=== PATIENT | male | born 1970 | race Caucasian/White ===

== ENCOUNTER 2016-06-06 16:59 | Observation (INO) ==
--- NOTE | 2016-06-06 17:07 | Emergency Department Note ---
Disposition Clinical Impression: Chest pain Qualifiers: Chest pain type: unspecified Qualified Code(s): R07.9 - Chest pain, unspecified GI bleeding Qualifiers: GI bleed type/associated pathology: unspecified gastrointestinal hemorrhage type Qualified Code(s): K92.2 - Gastrointestinal hemorrhage, unspecified Disposition: Admitted As Inpatient Condition: Good Time of Disposition: 18:47 General Adult HPI - General Stated complaint: chest pain, rectal bleeding Time Seen by Provider: 06/06/16 17:05 Nursing Notes Reviewed: Yes Vital Signs Reviewed: Yes - Related Data Allergies Allergy/AdvReac Type Severity Reaction Status Date / Time acetaminophen [From Tylenol] Allergy Hives Verified 06/06/16 17:13 Course Course Narrative: Male patient resting in bed appears in distress. He does does not appear in respiratory distress. He appears like he is in pain. He says that he is having chest pain that started approximately 3 hours ago when he was "tinkering " outside. He denies doing any strenuous activity. He states that he does have a previous stent placement history and is on Plavix and aspirin daily. He states that this does feel like his previous MIs. He has used nitroglycerin with no relief. He states the pain is a sharp and aching in the center of his chest that radiates down his left arm and up to his neck. Also complaining of a cramping abdominal pain that is impressive for 3 days. He states that he has also had a bright red blood per rectum as well as passing clots per rectum for the past 3 days. His abdomen is soft with no organomegaly appreciated however he does state he has tenderness in all of his quadrants on palpation. We will do a cardiac workup. Will also provide patient with pain relief. He is hypertensive while he is here. He states he has taken his blood pressure medication today. - Reevaluation(s) Reevaluation #1: Patient complaining of pain still. We will give additional pain meds. He is still hypertensive as well. He states that he does have a recent history of pancreatitis. He has gross blood per rectum. Time: 18:07 Reevaluation #2: Patient very anxious lying in bed. He states he does take Xanax every day. We will given Ativan while he is here. His blood pressure is decreasing appropriately. I am concerned for possible aortic dissection. We will do a CTA patient's chest at this time. Time: 18:39 - Consultations Consultation #1: Dr Stone accepted Pt in stable condition. He is aware of the patient's chest pain lower GI bleeding as well as his hypertension. Time: 18:28 Vital Signs Temperature 98.2 F 06/06/16 17:02 Pulse Rate 73 06/06/16 17:02 Respiratory Rate 16 06/06/16 17:02 Blood Pressure 224/128 06/06/16 17:02 O2 Sat by Pulse Oximetry 97 06/06/16 17:02 Temperature 98.2 F 06/06/16 17:02 Pulse Rate 79 06/06/16 18:34 Respiratory Rate 18 06/06/16 18:34 Blood Pressure 193/102 06/06/16 18:34 O2 Sat by Pulse Oximetry 96 06/06/16 18:34 Oxygen Delivery Oxygen Delivery Room Air Medical Decision Making - Lab Data Result diagrams: 06/06/16 17:20 Lab Results 06/06/16 06/06/16 06/06/16 Range/Units 17:20 17:20 17:20 WBC 9.0 (4.3-11.1) K/mcL RBC 4.69 (4.19-5.50) M/mcL Hgb 15.1 (12.9-16.9) g/dL Hct 44.8 (37.5-50.1) % MCV 95.5 (83.0-100.0) fL MCH 32.2 (28.0-33.3) pg MCHC 33.7 (31.6-35.5) g/dL RDW 13.2 (11.5-14.5) % Plt Count 190 (140-400) K/mcL MPV 10.3 (9.4-12.4) fL Immature Gran % 0.4 (0-4) % Seg Neutrophils % 72.9 % Lymphocytes % 20.4 % Monocytes % 4.0 % Eosinophils % 2.0 % Basophils % 0.3 % Neutrophils # 6.5 (1.6-8.9) K/mcL Lymphocytes # 1.8 (0.6-4.6) K/mcL Monocytes # 0.4 (0.0-1.3) K/mcL Eosinophils # 0.2 (0.0-0.6) K/mcL Basophils # 0.0 (0.0-0.2) K/mcL PT 12.1 (9.4-12.1) Seconds INR 1.1 APTT 30.5 (26.0-36.0) Seconds Total Bilirubin 0.6 (0.2-1.2) mg/dL Direct Bilirubin 0.3 (0.0-0.5) mg/dL Indirect Bilirubin 0.3 (0.0-1.2) mg/dL AST 48 H (5-34) Units/L ALT 81 H (0-55) Units/L Alkaline Phosphatase 104 (38-126) Units/L Troponin I (0-0.03) ng/mL Serum Total Protein 6.7 (6.0-8.3) g/dL Albumin 3.6 (3.5-5.0) g/dL Globulin 3.1 (2.4-3.5) g/dL Albumin/Globulin Ratio 1.2 (1.1-2.2) Amylase 92 (25-125) Units/L Lipase 43 (8-78) Units/L Stool Occult Blood (Negative) 06/06/16 06/06/16 Range/Units 17:20 18:02 WBC (4.3-11.1) K/mcL RBC (4.19-5.50) M/mcL Hgb (12.9-16.9) g/dL Hct (37.5-50.1) % MCV (83.0-100.0) fL MCH (28.0-33.3) pg MCHC (31.6-35.5) g/dL RDW (11.5-14.5) % Plt Count (140-400) K/mcL MPV (9.4-12.4) fL Immature Gran % (0-4) % Seg Neutrophils % % Lymphocytes % % Monocytes % % Eosinophils % % Basophils % % Neutrophils # (1.6-8.9) K/mcL Lymphocytes # (0.6-4.6) K/mcL Monocytes # (0.0-1.3) K/mcL Eosinophils # (0.0-0.6) K/mcL Basophils # (0.0-0.2) K/mcL PT (9.4-12.1) Seconds INR APTT (26.0-36.0) Seconds Total Bilirubin (0.2-1.2) mg/dL Direct Bilirubin (0.0-0.5) mg/dL Indirect Bilirubin (0.0-1.2) mg/dL AST (5-34) Units/L ALT (0-55) Units/L Alkaline Phosphatase (38-126) Units/L Troponin I 0.01 (0-0.03) ng/mL Serum Total Protein (6.0-8.3) g/dL Albumin (3.5-5.0) g/dL Globulin (2.4-3.5) g/dL Albumin/Globulin Ratio (1.1-2.2) Amylase (25-125) Units/L Lipase (8-78) Units/L Stool Occult Blood Positive A (Negative) - EKG Data EKG #1 EKG attestation: Yes I reviewed and interpreted this EKG. EKG results narrative: Normal sinus rhythm at a rate of 64. WI interval is 128. QRS duration is 86. QT is 390. QTC is 399. There is no ST elevation or depression consistent with the STEMI. He does have some mild ST depression in lead 2.
[2016-06-06] MEDS ORDERED: *HR* HYDROmorphone (PF) 1 MG/ML SYRINGE IVP ONE ×2 (17:13→18:08)
[2016-06-06] MEDS ORDERED: Ondansetron 4 MG/2 ML VIAL IVP ONE (17:14)
--- NOTE | 2016-06-06 17:17 | Emergency Department Note ---
START Narrative - START START: I examined this patient and my medical decision-making was reviewed with the PROFESSOR OF THEOLOGY/PA/Advanced Practice Nurse/Resident Physician. I agree with the documented findings, disposition and treatment plan as described except to the extent set forth below. ED attending note: Patient seen with emergency medicine resident Dr. Ramirez. Please see a copy of his note for details of the H&P, evaluation, management and disposition of this patient. We independently had [id number] contact with the patient Briefly: 6-year-old male history of several cardiac stents and prior GI bleeding comes in with mild exertional chest discomfort rating down left arm not responsive to his nitroglycerin spray is also been having bright red blood per rectum. With epigastric discomfort is epigastric discomfort on physical examination EKG shows nonspecific changes. Patient's pain will be treated with IV Dilaudid and imaging troponin among other labs. Provided 35 minutes medical care services this patient AMI, aortic dissection GI bleed among others are in her differential be worked up. Disposition pending.
[2016-06-06 17:33] LABS: Basophils % 0.3 %; Eosinophils # 0.2 K/mcL (0.0-0.6); Hematocrit 44.8 % (37.5-50.1); Hemoglobin 15.1 g/dL (12.9-16.9); Immature Granulocytes % 0.4 % (0-4); Lymphocytes # 1.8 K/mcL (0.6-4.6); Lymphocytes % 20.4 %; Mean Corpuscular HGB Conc 33.7 g/dL (31.6-35.5); Mean Corpuscular Hemoglobin 32.2 pg (28.0-33.3); Mean Corpuscular Volume 95.5 fL (83.0-100.0); Mean Platelet Volume 10.3 fL (9.4-12.4); Monocytes # 0.4 K/mcL (0.0-1.3); Neutrophils # 6.5 K/mcL (1.6-8.9); Platelet Count 190 K/mcL (140-400); Red Blood Count 4.69 M/mcL (4.19-5.50); Red Cell Distribution Width 13.2 % (11.5-14.5); Segmented Neutrophils % 72.9 %
[2016-06-06 17:38] LABS: INR 1.1; Prothrombin Time 12.1 Seconds (9.4-12.1)
[2016-06-06 17:41] LABS: Activated Partial Thrombo Time 30.5 Seconds (26.0-36.0)
[2016-06-06 17:49] LABS: Albumin 3.6 g/dL (3.5-5.0); Albumin/Globulin Ratio 1.2 (1.1-2.2); Bilirubin,Direct 0.3 mg/dL (0.0-0.5); Bilirubin,Indirect 0.3 mg/dL (0.0-1.2); Bilirubin,Total 0.6 mg/dL (0.2-1.2); Globulin 3.1 g/dL (2.4-3.5); Total Protein 6.7 g/dL (6.0-8.3)
[2016-06-06] MEDS ORDERED: *HR* LORazepam 2 MG/ML VIAL IVP ONE (18:38)
[2016-06-06 18:45] LABS: BUN/Creatinine Ratio 12 (6-26); Blood Urea Nitrogen 15 mg/dL (8-26); Calcium 8.7 mg/dL (8.6-10.8); Carbon Dioxide 17 mEq/L (19-29); Chloride 111 mEq/L (98-109); Glucose 188 mg/dL (70-99); Osmolality,Calculated 296 (280-300); Potassium 3.8 mEq/L (3.5-4.5); Sodium 140 mEq/L (136-145); eGFR For African Americans > 60 (> 60); eGFR For Non-African Americans > 60 (> 60)
[2016-06-06] MEDS ORDERED: methylPREDNISolone 125 MG/2 ML VIAL IVP ONE (18:52)
[2016-06-06] MEDS ORDERED: Naloxone 0.4 MG/ML INJ IVP PRN (22:01)
[2016-06-06] MEDS ORDERED: Ondansetron 4 MG/2 ML VIAL IVP PRN (22:01)
--- NOTE | 2016-06-06 22:20 | Internal Med History&Physical ---
Date of Encounter: 06/06/16 Time of Encounter: 22:20 Assessment and Plan (1) Hematochezia Current visit: Yes Status: Acute Patient apparently had GI bleed in the past and had colonoscopy but he does not remember the result. Fecal occult blood is positive. Will hold aspirin and Plavix. Gastroenterology consultation. Keep the pt NPO. Pt has epigastric pain and cannot completely rule out upper GI bleed with rapid transit. Hence will give pantoprazole IV. Monitor H&H Q6H (2) Hypertensive urgency Current visit: Yes Status: Acute Continue home medications and hydralazine PRN (3) Chest pain Current visit: Yes Status: Acute Not typical chest pain for ACS. Pt has hypertensive urgency, which could also cause chest pain. His pain seem to be extension from the abdominal pain. EKG shows no acute ischemic changes. Cardiac monitoring. Trend troponins. Qualifiers: Chest pain type: unspecified Qualified Code(s): R07.9 - Chest pain, unspecified (4) Epigastric abdominal pain Current visit: Yes Status: Acute Lipase is normal. Could be related to Gastritis / PUD. CT abdomen is negative for acute lesions. Emperically treat with pantoprazole. (5) CAD (coronary artery disease) Current visit: Yes Status: Chronic Hold aspirin and documented to hematochezia. Otherwise continue home medications. Qualifiers: Coronary Disease-Associated Artery/Lesion type: [place] artery [place] vs. transplanted heart: [place] heart Associated angina: angina presence unspecified Qualified Code(s): I25.10 - Atherosclerotic heart disease of [place] coronary artery without angina pectoris (6) Obesity (BMI 30.0-34.9) Current visit: Yes Status: Chronic Supportive care (7) Fatty liver Current visit: Yes Status: Acute Noted on CT scan of the abdomen. Supportive care Internal Medicine - H&P: HPI Chief complaint: Chest pain; dark blood in BM Admitted From: Emergency Dept Plans for Post Hospital Care: Home History of present illness: Mr. Pink is a 46 year old male with h/o CAD s/p stent placement (last one about 2 years ago) - on aspirin and clopidogrel, HTN. He reports 3 day history of bleeding per rectum - today noticed some clots / dark blood. Denies black stool, coffee-ground vomit. He reports sharp pain in the epigastric/left upper quadrant region, extending into the lower chest and radiating to the back / interscapular area. Pain is 8/10 in severity, with relief with dilaudid in the ER. Apparently he had some relief of pain with nitroglycerine. No significant shortness of breath, cough, expectation, fever, chills, nausea, vomiting. He was evaluated in the emergency department. Fecal occult blood was positive. Troponin was negative. CTA chest was negative for pulmonary embolism. He is admitted to the hospitalist service for further management. Past Med Surg Social Fam HX - Past Medical History Medical history: coronary artery disease, hypertension, myocardial infarction, renal disease Psychiatric history: no psych history - Social History Smoking Status: Light tobacco smoker Packs per day: 02/17 Smokeless Tobacco Status: Yes Alcohol use: none Drug use: marijuana - Family History Mother Adopted: No Age: 65 Family Member Ethnicity: Non- Living Status: Still Living Hx Family Cardiac Disorders: Yes Hx Family Cancer: No Hx Family Endocrine Disorder: Yes Father Adopted: No Age: 75 Family Member Ethnicity: Non- Living Status: Still Living Hx Family Cardiac Disorders: Yes Hx Family Endocrine Disorder: Yes Internal Medicine - H&P: Meds Alprazolam [Xanax] 2 mg PO BID 06/07/16 [History] Aspirin Enteric Coated [Aspirin EC] 81 mg PO DAILY 06/07/16 [History] Atorvastatin Calcium [Lipitor] 20 mg PO HS 06/07/16 [History] Buspirone HCl [Buspar] 30 mg PO BID 06/07/16 [History] Carvedilol 12.5 mg PO BID 06/07/16 [History] Cholecalciferol (D-3) [Vitamin D] 1,000 unit PO DAILY 06/07/16 [History] Clopidogrel [Plavix] 75 mg PO DAILY 06/07/16 [History] Lisinopril [Zestril] 20 mg PO DAILY 06/07/16 [History] Metoprolol [Lopressor] 50 mg PO BID 06/07/16 [History] Mirtazapine [Remeron] 30 mg PO HS 06/07/16 [History] Oxycodone HCl 15 mg PO TID 06/07/16 [History] Pantoprazole Sodium [Protonix] 40 mg PO DAILY 06/07/16 [History] Ranolazine [Ranexa] 1,000 mg PO BID 06/07/16 [History] Allergies acetaminophen [From Tylenol] Allergy (Verified 06/06/16 17:13) Hives All Systems PM: A 10-system review of systems was performed and is negative for pertinent findings except as documented above in the HPI. - Constitutional Vitals: Temp Pulse Resp BP Pulse Ox 98.2 F 79 20 188/108 96 06/06/16 17:02 06/06/16 18:34 06/06/16 19:26 06/06/16 19:26 06/06/16 18:34 Exam: General: In mild distress at the time of my evaluation. Obese HEENT: Oral mucosa is moist. No conjunctival palor or scleral icterus Neck: No obvious neck swellings Lungs: Clear to auscultation Cardiac: Regular rate and rhythm. No significant murmurs Abdomen: Epigastric, lower chest and LUQ tenderness. Bowel sounds present Genitourinary: No sandoval catheter Neurological: Alert and oriented. No gross localizing deficits Psych: Not aggressive or agitated Extremities: Minimal leg edema Skin: No generalized rash Internal Med - H&P Results - Labs CBC & Chem 7: 06/07/16 00:12 06/07/16 00:12 - EKG Data -: EKG Interpreted by Myself EKG shows normal: sinus rhythm - EKG Data EKG comments: Q waves in V1-V2 06/07/16 01:38 - Impressions ITS Impressions Chest X-Ray 06/06/16 17:13 IMPRESSION: No acute process. D/ / Luc Pugh MD / Luc Pugh MD Interpreting Provider: Luc Pugh MD Chest CTA 06/06/16 18:39 IMPRESSION: 1. No acute abnormalities are seen in the chest, abdomen or pelvis. 2. Negative for pulmonary embolism. 3. Negative for aortic aneurysm or dissection. 4. Fatty infiltration of the liver. 5. Bladder wall thickening can be seen in chronic cystitis or bladder outlet obstruction. 6. Atherosclerotic changes. D/ / 06/06/2016 22:01:00 Lc Vazquez MD / ana Interpreting Provider: Lc Vazquez MD
[2016-06-06] MEDS: 0.9 % Sodium Chloride 1,000 ML IVC SCH (22:24)
[2016-06-06] MEDS: *HR* Morphine 2 MG/ML SYRINGE IVP PRN (23:28)
[2016-06-06 23:33] LABS: Bilirubin,Urine Negative (Negative); Blood,Urine Negative (Negative); Clarity,Urine Clear (Clear); Color,Urine Yellow (Yellow); Glucose,Urine (UA) Normal (Normal); Ketones,Urine Negative (Negative); Leukocyte Esterase,Urine Negative (Negative); Nitrite,Urine Negative (Negative); PH,Urine 6.5 pH Units (5.0-8.0); Protein,Urine Negative (Neg-Trace); Specific Gravity,Urine 1.015 (1.010-1.025); Urobilinogen,Urine Normal (Normal)
[2016-06-07 00:35] LABS: Basophils % 0.2 %; Eosinophils % 0.2 %; Hematocrit 45.7 % (37.5-50.1); Hematocrit 45.8 % (37.5-50.1); Hemoglobin 15.2 g/dL (12.9-16.9); Hemoglobin 15.3 g/dL (12.9-16.9); Immature Granulocytes % 0.7 % (0-4); Lymphocytes # 0.6 K/mcL (0.6-4.6); Lymphocytes % 6.3 %; Mean Corpuscular HGB Conc 33.4 g/dL (31.6-35.5); Mean Corpuscular Hemoglobin 32.1 pg (28.0-33.3); Mean Corpuscular Volume 96.2 fL (83.0-100.0); Mean Platelet Volume 10.2 fL (9.4-12.4); Monocytes # 0.1 K/mcL (0.0-1.3); Monocytes % 0.7 %; Platelet Count 192 K/mcL (140-400); Red Blood Count 4.76 M/mcL (4.19-5.50); Red Cell Distribution Width 13.2 % (11.5-14.5); Segmented Neutrophils % 91.9 %
[2016-06-07 00:49] LABS: BUN/Creatinine Ratio 12 (6-26); Blood Urea Nitrogen 15 mg/dL (8-26); Calcium 8.8 mg/dL (8.6-10.8); Carbon Dioxide 18 mEq/L (19-29); Chloride 111 mEq/L (98-109); Chol/HDL Ratio 6.2 (0-4.9); Cholesterol 236 mg/dL (< 200); Glucose 181 mg/dL (70-99); HDL Cholesterol 38 mg/dL (40-59); LDL Cholesterol,Calculated 180 mg/dL (0-99); Magnesium 1.9 mg/dL (1.6-2.6); Osmolality,Calculated 293 (280-300); Potassium 4.3 mEq/L (3.5-4.5); Sodium 139 mEq/L (136-145); Triglycerides 91 mg/dL (< 150); eGFR For African Americans > 60 (> 60); eGFR For Non-African Americans > 60 (> 60)
[2016-06-07] MEDS ORDERED: Mirtazapine 15 MG TABLET PO SCH (01:00)
[2016-06-07] MEDS: ALPRAZolam 1 MG TABLET PO SCH ×2 (01:08→08:52)
[2016-06-07] MEDS ORDERED: Pantoprazole 40 MG VIAL IVP SCH ×2 (01:20→04:00)
[2016-06-07] MEDS: *HR* HYDROmorphone (PF) 1 MG/ML SYRINGE IVP PRN ×2 (01:55→04:58)
[2016-06-07] MEDS: *HR* Morphine 2 MG/ML SYRINGE IVP PRN ×2 (03:34→07:18)
[2016-06-07] MEDS: 0.9 % Sodium Chloride 1,000 ML IVC SCH (08:52)
[2016-06-07] MEDS ORDERED: Ranolazine 500 MG TAB.ER.12H PO SCH (09:00)
[2016-06-07] MEDS ORDERED: *HR* OxyCODONE Immed Rel 15 MG TABLET PO SCH (09:00)
[2016-06-07] MEDS ORDERED: Nitroglycerin 0.4 MG TAB.SUBL SL PRN (09:02)
[2016-06-07] MEDS ORDERED: Lisinopril 20 MG TABLET PO SCH (09:15)
[2016-06-07] MEDS ORDERED: Isosorbide MONOnitrate (24 HR) 60 MG TAB.ER.24H PO SCH (09:15)
[2016-06-07] MEDS ORDERED: *HR* OxyCODONE Immed Rel 15 MG TABLET PO PRN (09:31)
[2016-06-07] MEDS: Sucralfate 1 GM TABLET PO SCH ×2 (10:42→15:55)
[2016-06-07 11:46] VITALS: BP 139/85
--- NOTE | 2016-06-07 12:15 | Discharge Summary ---
Date of Encounter: 06/07/16 Time of Encounter: 12:15 - Discharge Diagnosis (1) Drug-seeking behavior Priority: Primary Status: Acute (2) Fatty liver Priority: Secondary Status: Chronic (3) Hematochezia Priority: Primary Status: Chronic (4) Hypertensive urgency Priority: Primary Status: Resolved (5) CAD (coronary artery disease) Priority: Secondary Status: Chronic Qualifiers: Coronary Disease-Associated Artery/Lesion type: [place] artery [place] vs. transplanted heart: [place] heart Associated angina: angina presence unspecified Qualified Code(s): I25.10 - Atherosclerotic heart disease of [place] coronary artery without angina pectoris (6) Obesity (BMI 30.0-34.9) Priority: Secondary Status: Chronic - Discharge Medications Prescriptions: Albuterol Neb [Proventil Neb] 2.5 mg IH Q4HR PRN #15 vial.neb PRN Reason: Wheezing Albuterol Sulfate [Ventolin Hfa] 2 puff IH Q4H PRN #2 hfa.aer.ad PRN Reason: Shortness Of Breath Nebulizer [Aeroeclipse] 1 each MC DAILY PRN #1 kit PRN Reason: Wheezing Nebulizer Accessories [Sootheneb [id number] Adult Mask] 1 each MC DAILY PRN #1 each PRN Reason: Wheezing Home Medications: Albuterol Neb [Proventil Neb] 2.5 mg IH Q4HR PRN #15 vial.neb 06/07/16 [Rx] Albuterol Sulfate [Ventolin Hfa] 2 puff IH Q4H PRN #2 hfa.aer.ad 06/07/16 [Rx] Alprazolam [Xanax] 2 mg PO BID 06/07/16 [History] Aspirin Enteric Coated [Aspirin EC] 325 mg PO DAILY 06/07/16 [History] Atorvastatin Calcium [Lipitor] 20 mg PO HS 06/07/16 [History] Buspirone HCl [Buspar] 10 mg PO TID 06/07/16 [History] Clopidogrel [Plavix] 75 mg PO DAILY 06/07/16 [History] Ergocalciferol (VITAMIN D2) [Vitamin D] 400 unit PO DAILY 06/07/16 [History] Escitalopram [Lexapro] 10 mg PO DAILY 06/07/16 [History] Furosemide [Lasix] 20 mg PO DAILY 06/07/16 [History] Isosorbide MONOnitrate (24 HR) [Imdur] 60 mg PO DAILY 06/07/16 [History] Lisinopril [Zestril] 40 mg PO DAILY 06/07/16 [History] Metoprolol [Lopressor] 50 mg PO BID 06/07/16 [History] Mirtazapine [Remeron] 30 mg PO HS 06/07/16 [History] Nebulizer Accessories [Sootheneb [id number] Adult Mask] 1 each MC DAILY PRN #1 each 06/07/16 [Rx] Nebulizer [Aeroeclipse] 1 each MC DAILY PRN #1 kit 06/07/16 [Rx] Nitroglycerin [Nitrostat] 0.4 mg SL AD PRN 06/07/16 [History] Oxycodone HCl 15 mg PO TID 06/07/16 [History] Pantoprazole Sodium [Protonix] 40 mg PO DAILY 06/07/16 [History] Ranolazine [Ranexa] 1,000 mg PO BID 06/07/16 [History] Sucralfate [Carafate] 1 gm PO QIDAC 06/07/16 [History] Allergies/Adverse Reactions: Allergies acetaminophen [From Tylenol] Allergy (Verified 06/06/16 17:13) Hives Date of admission: 06/07/16 09:06 Primary care physician: PCP ANJU Discharging clinician: Yunior Hernandez Anticipated date of discharge: 06/07/16 - Patient Status Disposition: Home, Self-Care Condition: Good Functional capacity at discharge: independent ambulation Overall status at discharge: patient is back to baseline - Discharge Instructions Instructions: Chest Pain (DC), Gastrointestinal Bleeding (DC), Hypertensive Crisis (DC) Follow Up With: NO,PCP [Primary Care Provider] - Forms: ED Satisfaction Letter - Diet and Activity Activity: resume usual activities as tolerated Diet: low fat, low cholesterol, low salt diet Interval History: See below Hospital course: Mr. Pink is a 46 year old male Patient presented with abdominal pain and hx of hematochezia He has a PMH of hemorrhoids, CAD, HTN Liver disease, Ex-smoker He is hemodynamically stable. FOBT positive. UA unremarkable His BP was uncontrolled on admission possibly due to non-compliance with medications or appointments His work up is negative for an organic cause of his abdominal pain, chem is at baseline, CBC unremarkable, evidence of uncontrolled HLD, Normal amylase/lipase , mild transmits possibly from fatty liver, Patient has Oxycodone and Xanax listed as his home meds , [facility] review noted for no active prescriptions for opiates or xanax, patient reports "getting them from my doctor", however, has no established PCP Hb has remained stable at ~15 since admission GI was consulted, recommendations appreciated Since patient is hemodynamically stable, he can have colonoscopy scheduled as out-patient He will need to hold Plavix for 5 days prior to procedure PCP and GI appointments have been scheduled for patient, encouraged to follow up - Time Spent with Patient Total time spent providing and/or coordinating discharge services: Less than 30 minutes - Constitutional Vitals: Temp Pulse Resp BP Pulse Ox 97.7 F 66 16 139/85 95 06/07/16 11:46 06/07/16 11:46 06/07/16 11:46 06/07/16 11:46 06/07/16 11:46 General appearance: Present: A&O X 3, pleasant, no acute distress, obese - Head Head exam: Present: atraumatic, normocephalic - Eye Eye exam: Present: PERRL, conjuntiva pink, sclera anicteric Pupils: Present: PERRL - Neck Neck exam general surgery: Present: supple, trachea midline. Absent: lymphadenopathy - Respiratory Respiratory exam: Present: CTAB. Absent: accessory muscle use, rales, rhonchi, wheezes - Cardiovascular Cardiovascular exam: Present: RRR, +S1, +S2. Absent: diastolic murmur, gallop, rubs, systolic murmur - GI/Abdominal GI/Abdominal exam: Present: normal bowel sounds, soft, no peritoneal signs. Absent: distended, tenderness - Extremities Exam Extremities exam: Present: warm, radial pulses palpable and symetrical. Absent : calf tenderness, cyanotic, pedal edema - Neurological Exam Neurological exam: Present: alert, CN II-XII intact, oriented X3, no focal deficits. Absent: pronater drift, facial droop, speech deficit - Skin Skin exam: Present: dry, intact
--- NOTE | 2016-06-07 13:53 | Event Note ---
<Lc Vitale - Last Filed: 06/07/16 13:49> Date of Encounter: 06/07/16 Time of Encounter: 13:49 Chart reviewed. Hgb 15.1 on admission and 15.2 today. Pt with [facility] for 3 days. CTA abdomen showed fatty liver. Plan for colonoscopy in 2-3 weeks as outpatient. Pt will need to hold Plavix 5 days before procedure. <Beth Bahena - Last Filed: 06/07/16 17:41> Date of Encounter: 06/07/16
--- NOTE | 2016-06-07 19:31 | Electrocardiograph Report ---
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
[2016-06-08] MEDS ORDERED: Furosemide 20 MG TABLET PO SCH (09:00)
[2016-06-08] MEDS ORDERED: Cholecalciferol (D-3) 1,000 UNIT TABLET PO SCH ×2 (09:00)
== END 2016-06-07 16:55 | disposition home or self-care (01) ==
LOC: 2ANU 16:59 → EMEROO 16:59 → 2ANU 20:00 → UNDODISIN 06-07 16:55
PROVIDERS: ADMIT Internal Medicine; ATTEND Internal Medicine

== ENCOUNTER 2017-05-05 00:25 | Observation (INO) ==
[2017-05-05] MEDS ORDERED: Adenosine 90 MG/30 ML MLS IV ONE (02:25)
[2017-05-05] MEDS ORDERED: *HR* OxyCODONE Immed Rel 5 MG TABLET PO PRN (03:03)
[2017-05-05] MEDS ORDERED: Naloxone 0.4 MG/ML INJ IVP PRN (03:03)
[2017-05-05] MEDS ORDERED: Nitroglycerin 1 INCH/GM PACKET TP ONE (03:07)
--- NOTE | 2017-05-05 03:18 | Internal Med History&Physical ---
Date of Encounter: 05/05/17 Time of Encounter: 02:30 Assessment and Plan (1) COPD (chronic obstructive pulmonary disease) Current visit: Yes Status: Acute Patient has no wheezing. No signs of exacerbation. Continue home medications Qualifiers: COPD type: emphysema Emphysema type: unspecified Qualified Code(s): J43.9 - Emphysema, unspecified (2) History of CVA (cerebrovascular accident) Current visit: Yes Status: Acute Continue antiplatelet and statin. (3) Status post carotid surgery Current visit: Yes Status: Acute (4) Borderline diabetes Current visit: Yes Status: Acute Continue diet control (5) DVT prophylaxis Current visit: Yes Status: Acute Heparin subcutaneously (6) Chest pain Current visit: No Status: Acute Patient has a constant chest pain since this afternoon. History of CAD S/P stent. EKG and chest x-ray unremarkable. - Continuous cardiac monitoring - Track 3 sets of troponin, check d-dimer - Echocardiogram in a.m. - Placing patient on Nitropaste. Place patient on pain medication as needed Qualifiers: Chest pain type: precordial pain Qualified Code(s): R07.2 - Precordial pain (7) CAD (coronary artery disease) Current visit: No Status: Chronic Continue home medication aspirin, beta daniella, and statin Qualifiers: Coronary Disease-Associated Artery/Lesion type: [place] artery [place] vs. transplanted heart: [place] heart Associated angina: angina presence unspecified Qualified Code(s): I25.10 - Atherosclerotic heart disease of [place] coronary artery without angina pectoris (8) Obesity (BMI 30.0-34.9) Current visit: No Status: Chronic Need the lifestyle modification as outpatient (9) Hypertension Current visit: Yes Status: Acute Continue home medications. Closely monitor BP Qualifiers: Hypertension type: essential hypertension Qualified Code(s): I10 - Essential (primary) hypertension Internal Medicine - H&P: HPI Chief complaint: Chest pain Admitted From: Home Plans for Post Hospital Care: Home History of present illness: Mr. Pink is a 47 year old male with history of CAD S/P stent, borderline diabetes on diet control only, COPD, and hypertension, presented to ER of [facility] for chest pain. Patient said the chest pain started about 3 PM in the afternoon when patient is at rest. Chest pain is sudden onset, located on left chest, radiated to left the neck and back. Chest pain is constant. Patient has shortness of breath, nausea, and diaphoresis. No specific position makes the pain feels better or worse. Chest pain is not related to deep breath. Patient denies recent travel, immobilization, or surgery. Firstly EKG is unremarkable in [facility]. Chest x-ray negative. The first of troponin negative. Patient was treated with 2 mg IV morphine but the pain does not subside. Patient was transferred to our hospital because he sees cardiology here. When I saw patient in floor, he still complain of chest pain. Past Med Surg Social Fam HX - Past Medical History Medical history: coronary artery disease, hypertension, myocardial infarction, renal disease Psychiatric history: no psych history - Social History Smoking Status: Light tobacco smoker Smokeless Tobacco Status: Yes Alcohol use: none Drug use: marijuana - Family History Mother Adopted: No Family Member Ethnicity: Non- Living Status: Still Living Hx Family Cardiac Disorders: Yes ([place]) Hx Family Cancer: No Hx Family Endocrine Disorder: Yes Father Adopted: No Family Member Ethnicity: Non- Living Status: Hx Family Cardiac Disorders: Yes ([place]) Hx Family Endocrine Disorder: Yes ([place]) Internal Medicine - H&P: Meds Albuterol Neb [Proventil Neb] 2.5 mg IH Q4HR PRN #15 vial.neb 06/07/16 [Rx] Albuterol Sulfate [Ventolin Hfa] 2 puff IH Q4H PRN #2 hfa.aer.ad 06/07/16 [Rx] Alprazolam [Xanax] 2 mg PO BID 06/07/16 [History] Aspirin Enteric Coated [Aspirin EC] 325 mg PO DAILY 06/07/16 [History] Atorvastatin Calcium [Lipitor] 20 mg PO HS 06/07/16 [History] Buspirone HCl [Buspar] 10 mg PO TID 06/07/16 [History] Clopidogrel [Plavix] 75 mg PO DAILY 06/07/16 [History] Ergocalciferol (VITAMIN D2) [Vitamin D] 400 unit PO DAILY 06/07/16 [History] Escitalopram [Lexapro] 10 mg PO DAILY 06/07/16 [History] Furosemide [Lasix] 20 mg PO DAILY 06/07/16 [History] Isosorbide MONOnitrate (24 HR) [Imdur] 60 mg PO DAILY 06/07/16 [History] Lisinopril [Zestril] 40 mg PO DAILY 06/07/16 [History] Metoprolol [Lopressor] 50 mg PO BID 06/07/16 [History] Mirtazapine [Remeron] 30 mg PO HS 06/07/16 [History] Nebulizer Accessories [Sootheneb [id number] Adult Mask] 1 each MC DAILY PRN #1 each 06/07/16 [Rx] Nebulizer [Aeroeclipse] 1 each MC DAILY PRN #1 kit 06/07/16 [Rx] Nitroglycerin [Nitrostat] 0.4 mg SL AD PRN 06/07/16 [History] Oxycodone HCl 15 mg PO TID 06/07/16 [History] Pantoprazole Sodium [Protonix] 40 mg PO DAILY 06/07/16 [History] Ranolazine [Ranexa] 1,000 mg PO BID 06/07/16 [History] Sucralfate [Carafate] 1 gm PO QIDAC 06/07/16 [History] 3 Allergy/AdvReac Type Severity Reaction Status Date / Time acetaminophen [From Tylenol] Allergy Hives Verified 06/06/16 17:13 All Systems PM: A 10-system review of systems was performed and is negative for pertinent findings except as documented above in the HPI. - Constitutional General appearance: Present: mild distress, A&O X 3, answers questions appropriately - Head Head exam: Present: atraumatic, normocephalic - Eye Eye exam: Present: PERRL, conjuntiva pink, sclera anicteric Pupils: Present: PERRL - Neck Neck exam general surgery: Present: supple, trachea midline. Absent: lymphadenopathy - Respiratory Respiratory exam: Present: CTAB. Absent: accessory muscle use, rales, rhonchi, wheezes - Cardiovascular Cardiovascular exam: Present: RRR, +S1, +S2. Absent: diastolic murmur, gallop, rubs, systolic murmur - GI/Abdominal GI/Abdominal exam: Present: normal bowel sounds, soft, no peritoneal signs. Absent: distended, tenderness - Extremities Exam Extremities exam: Present: warm, radial pulses palpable and symmetrical. Absent : calf tenderness, cyanotic, pedal edema - Neurological Exam Neurological exam: Present: CN II-XII intact, oriented X3, no focal deficits. Absent: pronater drift, facial droop, speech deficit - Skin Skin exam: Present: dry, intact Internal Med - H&P Results - EKG Data -: EKG Interpreted by Myself EKG shows normal: sinus rhythm, ST-T waves (No significant ST-T change) Rate: normal
[2017-05-05] MEDS ORDERED: Albuterol 2.5 MG/3 ML NEBULIZER IH PRN (03:24)
[2017-05-05] MEDS ORDERED: Nitroglycerin 0.4 MG TAB.SUBL SL PRN (03:24)
[2017-05-05] MEDS ORDERED: Ipratropium/Albuterol Neb 3 ML IH PRN (03:44)
[2017-05-05] MEDS ORDERED: *HR* OxyCODONE Immed Rel 5 MG TABLET PO ONE (03:59)
[2017-05-05 05:04] LABS: INR 1.1; Prothrombin Time 11.5 Seconds (9.4-12.1)
[2017-05-05 05:09] LABS: Basophils % 0.3 %; Eosinophils # 0.2 K/mcL (0.0-0.6); Eosinophils % 2.1 %; Hematocrit 39.5 % (37.5-50.1); Hemoglobin 12.8 g/dL (12.9-16.9); Immature Granulocytes % 0.7 % (0-4); Lymphocytes % 23.3 %; Mean Corpuscular HGB Conc 32.4 g/dL (31.6-35.5); Mean Corpuscular Hemoglobin 31.1 pg (28.0-33.3); Mean Corpuscular Volume 95.9 fL (83.0-100.0); Mean Platelet Volume 10.5 fL (9.4-12.4); Monocytes # 0.6 K/mcL (0.0-1.3); Monocytes % 6.8 %; Neutrophils # 5.8 K/mcL (1.6-8.9); Platelet Count 187 K/mcL (140-400); Red Blood Count 4.12 M/mcL (4.19-5.50); Red Cell Distribution Width 13.4 % (11.5-14.5); Segmented Neutrophils % 66.8 %
[2017-05-05 05:20] LABS: Alanine Aminotransferase 134 Units/L (7-52); Albumin 3.7 g/dL (3.5-5.7); Albumin/Globulin Ratio 1.6 (1.1-2.2); Alkaline Phosphatase 88 Units/L (34-104); Aspartate Amino Transferase 95 Units/L (13-39); BUN/Creatinine Ratio 14 (6-26); Bilirubin,Total 0.4 mg/dL (0.3-1.0); Blood Urea Nitrogen 13 mg/dL (6-20); Calcium 8.5 mg/dL (8.6-10.3); Carbon Dioxide 21 mEq/L (23-29); Chloride 112 mEq/L (98-107); Globulin 2.3 g/dL (2.4-3.5); Glucose 74 mg/dL (70-105); Magnesium 1.7 mg/dL (1.6-2.6); Osmolality,Calculated 283 (280-300); Potassium 4.7 mEq/L (3.5-5.1); Sodium 137 mEq/L (136-145); eGFR For African Americans > 60 (> 60); eGFR For Non-African Americans > 60 (> 60)
[2017-05-05] MEDS: *HR* Heparin 5,000 UNIT/ML VIAL SQ SCH ×2 (06:20→17:47)
[2017-05-05] MEDS ORDERED: Isosorbide MONOnitrate (24 HR) 60 MG TAB.ER.24H PO SCH (09:00)
[2017-05-05] MEDS ORDERED: *HR* OxyCODONE Immed Rel 15 MG TABLET PO PRN (09:03)
[2017-05-05] MEDS: Sucralfate 1 GM TABLET PO SCH ×4 (09:15→21:54)
[2017-05-05] MEDS: Cholecalciferol (D-3) 1,000 UNIT TABLET PO SCH (09:15)
[2017-05-05] MEDS: ALPRAZolam 1 MG TABLET PO SCH ×2 (09:16→21:13)
[2017-05-05] MEDS: amLODIPine 5 MG TABLET PO SCH (09:16)
[2017-05-05] MEDS: Aspirin Enteric Coated 325 MG Tablet PO SCH (09:17)
[2017-05-05] MEDS: Furosemide 20 MG TABLET PO SCH (09:17)
[2017-05-05] MEDS: Ranolazine 500 MG TAB.ER.12H PO SCH ×2 (09:17→21:54)
[2017-05-05] MEDS: Lisinopril 20 MG TABLET PO SCH (09:17)
--- NOTE | 2017-05-05 12:39 | Cardiology Consult Note ---
Addendum entered and electronically signed by Singh Haywood CNP 05/05/17 13:59: Documented IVP dye allergy, reported "unresponsiveness". Will pre-medicate with prednisone and benadryl in anticipation of LHC tomorrow. Original Note: Date of Encounter: 05/05/17 Time of Encounter: 12:35 Assessment and Plan (1) Chest pain Current Visit: Yes Status: Acute As HPI, presented with chest pain that started yesterday at 3PM--sharp/heavy radiating to neck, back and into left shoulder associated with dyspnea, diaphoresis, nausea. Reports similar to prior anginal equivalent. Fatigue over the past year. Troponins negative x 2. No acute EKG changes. Chest pain currently 8--no alleviating or exacerbating factors. Reports multiple PCI in the past, most recent LHC and PCI ~1 year ago at [place] and reportedly a negative stress test ~6 months ago at [facility]. Will request records of both LHC and stress test. TTE pending to evaluate structure and function. Possible LHC tomorrow pending records and echo findings. R/B/A discussed and pt agreeable. Continue ASA, Plavix, Statin, BB, CCB, Nitrates. Will increase Imdur to 90mg daily. Continue to follow. Qualifiers: Chest pain type: unspecified Qualified Code(s): R07.9 - Chest pain, unspecified (2) CAD (coronary artery disease) Current Visit: Yes Status: Chronic As above, hx of multiple PCIs. ASA, Plavix, Statin, BB, CCB, Nitrates. Qualifiers: Coronary Disease-Associated Artery/Lesion type: [place] artery [place] vs. transplanted heart: [place] heart Associated angina: angina presence unspecified Qualified Code(s): I25.10 - Atherosclerotic heart disease of [place] coronary artery without angina pectoris Discussion w patient/family: The assessment and plan as outlined above was discussed with the patient and/or family members who expressed understanding and agreement. All questions were answered. Thank you for involving us in the care of your patient. Please call with any questions. I will discuss all the above with Dr. Del Toro and make changes as necessary. History of Present Illness Consult date: 05/05/17 Requesting physician: Mai Baugh Consult reason: chest pain Chief complaint: chest pain History of present illness: Mr. Pink is a 47 year old male Mr. Pink is a 47 year old male with history of CAD S/P multiple PCIs, borderline diabetes on diet control only, COPD, tobacco abuse, hypertension, reported hx of aorta repair, presented to ER from [facility] for chest pain. Patient said the chest pain started about 3 PM in the afternoon yesterday at rest. Chest pain is sudden onset, located on left chest, radiated to left the neck and back into left shoulder. Described as heavy and sharp. Pain has been intermittent, no alleviating or exacerbating factors. Patient has shortness of breath, nausea, and diaphoresis. Reports significant fatigue over the past year. Reports symptoms similar to prior anginal equivalent. Reports his most recent LHC was at [place] ~1 year ago with PCI at that time. Reports having a negative stress test at [facility] ~6 months ago. TTE pending. Troponins negative. Cardiology consulted for further recommendations. Past Med Surg Social Fam HX - Past Medical History Medical history: coronary artery disease, hypertension, myocardial infarction, renal disease Psychiatric history: no psych history - Social History Smoking Status: Light tobacco smoker Smokeless Tobacco Status: Yes Alcohol use: none Drug use: marijuana - Family History Mother Adopted: No Family Member Ethnicity: Non- Living Status: Still Living Hx Family Cardiac Disorders: Yes ([place]) Hx Family Cancer: No Hx Family Endocrine Disorder: Yes Father Adopted: No Family Member Ethnicity: Non- Living Status: Hx Family Cardiac Disorders: Yes ([place]) Hx Family Endocrine Disorder: Yes (DM) Medications and Allergies Albuterol Neb [Proventil Neb] 2.5 mg IH Q4HR PRN #15 vial.neb 06/07/16 [Rx] Albuterol Sulfate [Ventolin Hfa] 2 puff IH Q4H PRN #2 hfa.aer.ad 06/07/16 [Rx] Alprazolam [Xanax] 2 mg PO TID 06/07/16 [History] Aspirin Enteric Coated [Aspirin EC] 325 mg PO DAILY 06/07/16 [History] Atorvastatin Calcium [Lipitor] 80 mg PO HS 06/07/16 [History] Clopidogrel [Plavix] 75 mg PO DAILY 06/07/16 [History] Ergocalciferol (VITAMIN D2) [Vitamin D] 400 unit PO DAILY 06/07/16 [History] Escitalopram [Lexapro] 10 mg PO DAILY 06/07/16 [History] Furosemide [Lasix] 20 mg PO DAILY 06/07/16 [History] Isosorbide MONOnitrate (24 HR) [Imdur] 60 mg PO DAILY 06/07/16 [History] Lisinopril [Zestril] 40 mg PO DAILY 06/07/16 [History] Metoprolol [Lopressor] 50 mg PO BID 06/07/16 [History] Nitroglycerin [Nitrostat] 0.4 mg SL AD PRN 06/07/16 [History] Oxycodone HCl 15 mg PO TID 06/07/16 [History] Ranolazine [Ranexa] 1,000 mg PO BID 06/07/16 [History] Sucralfate [Carafate] 1 gm PO QIDAC 06/07/16 [History] Mirtazapine [Remeron] 45 mg PO HS 05/05/17 [History] Omeprazole [PriLOSEC] 40 mg PO DAILY 05/05/17 [History] Quetiapine Fumarate [Seroquel] 200 mg PO DAILY 05/05/17 [History] Venlafaxine XR (24 HR) [Effexor XR] 150 mg PO QPM 05/05/17 [History] amLODIPine [Norvasc] 5 mg PO DAILY 05/05/17 [History] 3 Allergy/AdvReac Type Severity Reaction Status Date / Time acetaminophen [From Tylenol] Allergy Hives Verified 06/06/16 17:13 All Systems Review: The remainder of the systems were reviewed and are negative - Cardiovascular Cardiovascular: as per HPI, chest pain at rest, chest pain with exertion, diaphoresis, dyspnea at rest, dyspnea on exertion, radiating jaw, neck or arm pain, leg edema - Respiratory Respiratory: dyspnea - Gastrointestinal Gastrointestinal: nausea Physical Examination Vital Signs, Last 4 Hours Temp Pulse Resp BP Pulse Ox 05/05/17 11:25 97.5 F L 68 18 111/70 95 Vital Signs Temp Pulse Resp BP Pulse Ox 05/05/17 11:25 97.5 F L 68 18 111/70 95 05/05/17 07:33 97.8 F 57 18 116/73 97 05/05/17 04:43 97.5 F L 61 15 139/88 98 Intake and Output 05/04/17 05/05/17 05/05/17 23:59 07:59 15:59 Intake Total 120 / 120 Balance 120 / 120 Intake: Oral 120 / 120 Other: Meal Breakfast Percent of Meal Consumed 100% Weight 95.878 kg Blood Glucose* 74 97 Patient Weight 05/05/17 23:59 Weight 95.878 kg General: Conversant, No Apparent Distress HEENT: Atraumatic, Normocephaly, Mucus Membranes Moist Neck: No JVD, Normal carotid pulses Cardiac: Reg Rate and Rhythm, Normal S1 and S2, Other (2/6 murmur noted) Lungs: Normal Breath Sounds, No Wheeze, Rales, Rhonchi Neuro: Alert and responsive, No focal deficits noted Abdomen: Soft, Non-Tender Skin: No rashes noted on visualized skin Musculoskeletal: No Chest Wall Tenderness Extremities: No Clubbing, No Cyanosis, No Edema, Normal Pulses Results 05/05/17 03:38 05/05/17 03:38 Lab Results 05/05/17 05/05/17 05/05/17 03:38 03:38 03:38 WBC 8.7 Hgb 12.8 L Hct 39.5 Plt Count 187 INR 1.1 D-Dimer Sodium 137 Potassium 4.7 Chloride 112 H Carbon Dioxide 21 L BUN 13 Creatinine 0.94 Glucose 74 Calcium 8.5 L Magnesium 1.7 Total Bilirubin 0.4 AST 95 H ALT 134 H Alkaline Phosphatase 88 Troponin I B-Natriuretic Peptide 05/05/17 05/05/17 05/05/17 03:38 03:38 03:38 WBC Hgb Hct Plt Count INR D-Dimer 348 Sodium Potassium Chloride Carbon Dioxide BUN Creatinine Glucose Calcium Magnesium Total Bilirubin AST ALT Alkaline Phosphatase Troponin I < 0.03 B-Natriuretic Peptide 334 H 05/05/17 09:09 WBC Hgb Hct Plt Count INR D-Dimer Sodium Potassium Chloride Carbon Dioxide BUN Creatinine Glucose Calcium Magnesium Total Bilirubin AST ALT Alkaline Phosphatase Troponin I < 0.03 B-Natriuretic Peptide Short CBC 05/05/17 Range/Units 03:38 WBC 8.7 (4.3-11.1) K/mcL Hgb 12.8 L (12.9-16.9) g/dL Hct 39.5 (37.5-50.1) % Plt Count 187 (140-400) K/mcL Neutrophils # 5.8 (1.6-8.9) K/mcL BMP 05/05/17 Range/Units 03:38 Sodium 137 (136-145) mEq/L Potassium 4.7 (3.5-5.1) mEq/L Chloride 112 H (98-107) mEq/L Carbon Dioxide 21 L (23-29) mEq/L BUN 13 (6-20) mg/dL Creatinine 0.94 (0.70-1.30) mg/dL Glucose 74 (70-105) mg/dL Calcium 8.5 L (8.6-10.3) mg/dL Cardiac Enzymes 05/05/17 05/05/17 Range/Units 09:09 03:38 Troponin I < 0.03 < 0.03 (< 0.04) ng/mL Liver Function 05/05/17 Range/Units 03:38 Total Bilirubin 0.4 (0.3-1.0) mg/dL AST 95 H (13-39) Units/L ALT 134 H (7-52) Units/L Alkaline Phosphatase 88 (34-104) Units/L Albumin 3.7 (3.5-5.7) g/dL Active Medications Albuterol/Ipratropium (Duoneb) 3 ml IH [id number] PRN PRN Reason: Shortness Of Breath/Wheezing Stop: 11/04/17 03:45 Alprazolam (Xanax) 2 mg PO BID [facility] Stop: 11/04/17 09:01 Last Admin: 05/05/17 09:16 Dose: 2 mg Amlodipine Besylate (Norvasc) 5 mg PO DAILY [facility] PRN Reason: Protocol Stop: 11/04/17 09:01 Last Admin: 05/05/17 09:16 Dose: 5 mg Aspirin (Aspirin Ec) 325 mg PO DAILY [facility] Stop: 11/04/17 09:01 Last Admin: 05/05/17 09:17 Dose: 325 mg Atorvastatin Calcium (Lipitor) 80 mg PO HS [facility] Stop: 11/04/17 21:01 Buspirone HCl (Buspar) 5 mg PO TID [facility] Stop: 11/04/17 09:01 Last Admin: 05/05/17 09:17 Dose: 5 mg Clopidogrel Bisulfate (Plavix) 75 mg PO DAILY [facility] Stop: 11/04/17 09:01 Last Admin: 05/05/17 09:16 Dose: 75 mg Escitalopram Oxalate (Lexapro) 10 mg PO DAILY [facility] Stop: 11/04/17 09:01 Last Admin: 05/05/17 09:15 Dose: 10 mg Furosemide (Lasix) 20 mg PO DAILY [facility] Stop: 11/04/17 09:01 Last Admin: 05/05/17 09:17 Dose: 20 mg Heparin Sodium (Porcine) (Heparin) 5,000 unit SQ Q12HCO [facility] Stop: 11/04/17 06:01 Last Admin: 05/05/17 06:20 Dose: 5,000 unit Isosorbide Mononitrate (Imdur) 60 mg PO DAILY [facility] Stop: 11/04/17 09:01 Last Admin: 05/05/17 09:16 Dose: 60 mg Lisinopril (Zestril) 40 mg PO DAILY [facility] PRN Reason: Protocol Stop: 11/04/17 09:01 Last Admin: 05/05/17 09:17 Dose: 40 mg Metoprolol Tartrate (Lopressor) 50 mg PO BID [facility] Stop: 11/04/17 09:01 Last Admin: 05/05/17 09:15 Dose: 50 mg Mirtazapine (Remeron) 30 mg PO HS [facility] Stop: 11/04/17 21:01 Naloxone HCl (Narcan) 0.4 mg IVP Q2MIN PRN PRN Reason: SEE COMMENTS Stop: 11/04/17 03:04 Nitroglycerin (Nitroglycerin) 0.4 mg SL AD PRN PRN Reason: Chest Pain Stop: 11/04/17 03:25 Omeprazole (Prilosec) 40 mg PO 0630 [facility] Stop: 11/04/17 06:31 Last Admin: 05/05/17 06:20 Dose: 40 mg Oxycodone HCl (Roxicodone) 15 mg PO Q6HR PRN PRN Reason: Severe Pain Stop: 11/04/17 09:04 Quetiapine Fumarate (Seroquel) 200 mg PO DAILY [facility] Stop: 11/04/17 09:01 Last Admin: 05/05/17 09:16 Dose: 200 mg Ranolazine (Ranexa) 1,000 mg PO BID [facility] Stop: 11/04/17 09:01 Last Admin: 05/05/17 09:17 Dose: 1,000 mg Sucralfate (Carafate) 1 gm PO QIDAC [facility] Stop: 11/04/17 07:31 Last Admin: 05/05/17 09:15 Dose: 1 gm Vitamin D (Vitamin D) 1,000 unit PO DAILY [facility] Stop: 11/04/17 09:01 Last Admin: 05/05/17 09:15 Dose: 1,000 unit - Imaging and Cardiology Echo: pending - EKG Interpretation EKG results cardiology: personally reviewed (Sinus yonas, rate 57), other (12 hr tele AVG HR 60, SR, no significant pauses or arrhythmias.) Consult Discharge Plan - Plan Referrals: Too Us DO [Primary Care Provider] -
--- NOTE | 2017-05-05 13:55 | Internal Med Progress Note ---
Date of Encounter: 05/05/17 Time of Encounter: 13:53 - Assessment and plan (1) Chest pain Current Visit: Yes Status: Acute Assessment and plan: Troponins are negative, EKG shows no signs of acute ischemia Patient complains of persistent chest pain Cardiology awaiting to receive records from other facilities to consider cardiac catheterization in the morning Patient will need to be present and medicated as he apparently is allergic to contrast Qualifiers: Chest pain type: unspecified Qualified Code(s): R07.9 - Chest pain, unspecified (2) Tobacco abuse Current Visit: Yes Status: Acute Assessment and plan: Nicotine patch, smoking cessation counseling (3) COPD (chronic obstructive pulmonary disease) Current Visit: Yes Status: Acute Assessment and plan: No exacerbation Qualifiers: COPD type: emphysema Emphysema type: unspecified Qualified Code(s): J43.9 - Emphysema, unspecified (4) History of CVA (cerebrovascular accident) Current Visit: Yes Status: Acute Assessment and plan: Aspirin and Plavix (5) Status post carotid surgery Current Visit: Yes Status: Acute Assessment and plan: History of left carotid endarterectomy (6) CAD (coronary artery disease) Current Visit: Yes Status: Chronic Assessment and plan: Hx of stents in the past at [facility] and [place] Continue aspirin, Lipitor, Plavix, Ranexa, metoprolol Qualifiers: Coronary Disease-Associated Artery/Lesion type: [place] artery [place] vs. transplanted heart: [place] heart Associated angina: angina presence unspecified Qualified Code(s): I25.10 - Atherosclerotic heart disease of [place] coronary artery without angina pectoris (7) Drug-seeking behavior Current Visit: No Status: Acute Assessment and plan: apparently the patient was found getting needles out of the sharp container. (8) Transaminitis Current Visit: Yes Status: Acute Assessment and plan: Denies any history of hepatitis We will order hepatitis panel for the morning - Subjective Interval history: still complaining of CP, no SOB, no fever, chills or abdominal pain, no dysuria , no diarrhea - Constitutional Vitals: Temp Pulse Resp BP Pulse Ox 97.5 F L 68 18 111/70 95 05/05/17 11:25 05/05/17 11:25 05/05/17 11:25 05/05/17 11:25 05/05/17 11:25 General appearance: Present: mild distress, A&O X 3, answers questions appropriately - Head Head exam: Present: atraumatic, normocephalic - Eye Eye exam: Present: PERRL, conjuntiva pink, sclera anicteric Pupils: Present: PERRL - Neck Neck exam general surgery: Present: supple, trachea midline. Absent: lymphadenopathy - Respiratory Respiratory exam: Present: CTAB. Absent: accessory muscle use, rales, rhonchi, wheezes - Cardiovascular Cardiovascular exam: Present: RRR, +S1, +S2. Absent: diastolic murmur, gallop, rubs, systolic murmur - GI/Abdominal GI/Abdominal exam: Present: normal bowel sounds, soft, no peritoneal signs. Absent: distended, tenderness - Extremities Exam Extremities exam: Present: warm, radial pulses palpable and symmetrical. Absent : calf tenderness, cyanotic, pedal edema - Neurological Exam Neurological exam: Present: CN II-XII intact, oriented X3, no focal deficits. Absent: pronater drift, facial droop, speech deficit - Skin Skin exam: Present: dry, intact Internal Medicine: Result - Labs CBC & Chem 7: 05/05/17 03:38 05/05/17 03:38 Labs: Short CBC 05/05/17 Range/Units 03:38 WBC 8.7 (4.3-11.1) K/mcL Hgb 12.8 L (12.9-16.9) g/dL Hct 39.5 (37.5-50.1) % Plt Count 187 (140-400) K/mcL Neutrophils # 5.8 (1.6-8.9) K/mcL BMP 05/05/17 03:38 Sodium 137 Potassium 4.7 Chloride 112 H Carbon Dioxide 21 L BUN 13 Creatinine 0.94 Glucose 74 Calcium 8.5 L Cardiac Enzymes 05/05/17 05/05/17 Range/Units 03:38 09:09 Troponin I < 0.03 < 0.03 (< 0.04) ng/mL Liver Function 05/05/17 Range/Units 03:38 Total Bilirubin 0.4 (0.3-1.0) mg/dL AST 95 H (13-39) Units/L ALT 134 H (7-52) Units/L Alkaline Phosphatase 88 (34-104) Units/L Albumin 3.7 (3.5-5.7) g/dL - ABG Interpretation ABG results: PT/INR, D-dimer PT 11.5 Seconds (9.4-12.1) 05/05/17 03:38 D-Dimer 348 ng/mLFEU (0-500) 05/05/17 03:38 - Impressions Impressions Echocardiogram 05/05/17 03:10 Impressions: LVEF 60-65%. Normal LV chamber size and function. Mild concentric left ventricular hypertrophy. Mild left ventricular diastolic dysfunction. Normal right ventricular structure and function. Mild aortic regurgitation. Mild-moderate obstruction across the LVOT, AV. Mean gradient 20 mmHg. Peak velocity 2.69 m/s. Mild tricuspid regurgitation. No pulmonary hypertension identified. Left Ventricular Wall Motion: Rest Echo Findings All wall segments showed normal motion. Findings: Study Quality * Technically sub-optimal due to poor echocardiographic windows. ECG Findings * Sinus bradycardia. Left Ventricle * LVEF 60-65%. * Normal LV chamber size and function. * Mild concentric left ventricular hypertrophy. * Mild left ventricular diastolic dysfunction. Right Ventricle * Normal right ventricular structure and function. Left Atrium * Moderately dilated left atrium. Right Atrium * Normal right atrial size. Interatrial Septum * Interatrial septum not well evaluated. Aortic Valve * Aortic valve not well visualized. * Grossly, the aortic valve appears calcified. Number of leaflets not well visualized. * Mild aortic regurgitation. * Mild-moderate obstruction across the LVOT/AV. Mean gradient 20 mmHg. Peak velocity 2.69 m/s. Mitral Valve * Mildly thickened mitral valve leaflets. * Trace mitral regurgitation. * No mitral stenosis. Tricuspid Valve * Normal tricuspid valve structure. * Mild tricuspid regurgitation. * No pulmonary hypertension. Pulmonic Valve * Pulmonic valve not well visualized. Aorta * Normally sized aortic root. Pericardium * The pericardium appears normal. IVC * Normal IVC dimensions and inspiratory collapse. Pulmonary Artery * Normal visualized portions of the main pulmonary artery. Consult Discharge Plan - Plan Referrals: Too Us DO [Primary Care Provider] -
[2017-05-05] MEDS: Nicotine 14 MG PATCH.TD24 TD SCH (14:37)
[2017-05-05] MEDS: Venlafaxine XR (24 HR) 75 MG CAP.ER.24H PO SCH (17:46)
[2017-05-05] MEDS ORDERED: Mirtazapine 15 MG TABLET PO SCH (21:00)
[2017-05-05] MEDS: predniSONE 20 MG TABLET PO SCH (21:54)
[2017-05-06] MEDS: *HR* Heparin 5,000 UNIT/ML VIAL SQ SCH ×2 (06:00→17:43)
[2017-05-06 07:46] LABS: Hepatitis A Antibody IgM Nonreactive (Nonreactive); Hepatitis B Core IgM Nonreactive (Nonreactive)
[2017-05-06 07:55] LABS: Hepatitis B Surface Antigen Reactive (Nonreactive); Hepatitis C Virus Antibody Reactive (Nonreactive)
[2017-05-06] MEDS: Aspirin Enteric Coated 325 MG Tablet PO SCH (08:41)
[2017-05-06] MEDS: ALPRAZolam 1 MG TABLET PO SCH (08:55)
[2017-05-06] MEDS: predniSONE 20 MG TABLET PO SCH (08:56)
[2017-05-06] MEDS: Ranolazine 500 MG TAB.ER.12H PO SCH (08:57)
[2017-05-06] MEDS: Lisinopril 20 MG TABLET PO SCH (08:57)
[2017-05-06] MEDS: Cholecalciferol (D-3) 1,000 UNIT TABLET PO SCH (08:57)
[2017-05-06] MEDS: Sucralfate 1 GM TABLET PO SCH ×3 (08:58→17:43)
[2017-05-06] MEDS: Furosemide 20 MG TABLET PO SCH (08:58)
[2017-05-06] MEDS: amLODIPine 5 MG TABLET PO SCH (08:58)
[2017-05-06] MEDS: Nicotine 14 MG PATCH.TD24 TD SCH (08:58)
[2017-05-06] MEDS ORDERED: Isosorbide MONOnitrate (24 HR) 30 MG TAB.ER.24H PO SCH (09:00)
[2017-05-06] MEDS ORDERED: *HR* Heparin 10,000 UNIT/10 ML VIAL ONE (09:18)
[2017-05-06] MEDS ORDERED: 0.9 % Sodium Chloride 2,000 ML ONE (09:18)
[2017-05-06] MEDS ORDERED: Nitroglycerin 1,000 MCG/10 ML VIAL IV ONE (09:18)
[2017-05-06] MEDS ORDERED: ISOVUE-370 200 ML INFUS..BTL IV ONE (09:18)
[2017-05-06] MEDS ORDERED: Heparin 1,000 UNITS/500 mL 500 ML ONE (09:18)
[2017-05-06] MEDS ORDERED: *HR* Midazolam HCl 2 MG/2 ML VIAL ONE ×2 (09:33→09:50)
--- NOTE | 2017-05-06 09:36 | Pre-Sedation Evaluation ---
Pre-sedation evaluation - Pre-sedation checklist Date of procedure: 05/06/17 Procedure: left heart cath Recent Vitals: Last Vital Signs Temp 97.7 F 05/06/17 07:15 Pulse 60 05/06/17 07:15 Resp 20 05/06/17 07:15 BP 138/83 05/06/17 07:15 Pulse Ox 98 05/06/17 07:15 H&P (including ROS) documented in medical record: Yes Previous reaction to sedatives/anesthetics: Yes; explain in comment (PT reports an allergy to IVP dye, but does not know what reaction he experienced, has had several heart caths since that reaction without symptoms.) Dietary Status: NPO after Midnight Airway Assessment: Patient can open mouth completely, TMJ function normal Dentition: No loose teeth or bridges Possible difficult airway: No ASA Classification *see protocol: CLASS III-Severe systemic disease Plan of Care: Pt appropriate candidate for procedure/moderate/conscious sedation , Risks/benefits of procedure/sedation discussed w/ patient/family, If not NPO; Risk of intake outweiged by necessity to perform procedure
[2017-05-06 09:43] LABS: Basophils % 0.2 %; Eosinophils % 0.1 %; Hematocrit 44.8 % (37.5-50.1); Immature Granulocytes % 0.6 % (0-4); Lymphocytes # 0.9 K/mcL (0.6-4.6); Lymphocytes % 7.4 %; Mean Corpuscular Hemoglobin 31.3 pg (28.0-33.3); Mean Corpuscular Volume 94.7 fL (83.0-100.0); Mean Platelet Volume 10.3 fL (9.4-12.4); Monocytes # 0.1 K/mcL (0.0-1.3); Monocytes % 1.1 %; Neutrophils # 10.7 K/mcL (1.6-8.9); Platelet Count 194 K/mcL (140-400); Red Blood Count 4.73 M/mcL (4.19-5.50); Red Cell Distribution Width 13.2 % (11.5-14.5); Segmented Neutrophils % 90.6 %
[2017-05-06 09:44] LABS: Hemoglobin 14.8 g/dL (12.9-16.9)
[2017-05-06 10:00] LABS: BUN/Creatinine Ratio 16 (6-26); Blood Urea Nitrogen 18 mg/dL (6-20); Carbon Dioxide 21 mEq/L (23-29); Chloride 110 mEq/L (98-107); Glucose 127 mg/dL (70-105); Osmolality,Calculated 285 (280-300); Potassium 4.9 mEq/L (3.5-5.1); Sodium 136 mEq/L (136-145); eGFR For African Americans > 60 (> 60); eGFR For Non-African Americans > 60 (> 60)
[2017-05-06] MEDS ORDERED: *HR* Bivalirudin 250 MG VIAL IVC ONE (10:28)
[2017-05-06] MEDS ORDERED: 0.9 % Sodium Chloride 1,000 ML IVC SCH (10:30)
--- NOTE | 2017-05-06 13:55 | Invasive Diagnostic Lab Proc ---
Name: Moose Pink Date of Study: 05/06/2017 Date: 1970 Ht: 66.1in Medical Record#: [id number] Age: 47 Wt: 211.20lb Gender: Male BSA: 2.05 Order #: [id number] BMI: 33.94 Physicians Procedure Physician: Dhaval Pink DO Referring MD: Patricia Gage CNP Referring MD: Staff Name Position Time In Thomas Washington RN Software Development Analyst 09:41 AM Raghu Chávez RN Software Development Analyst 09:41 AM Brooklynn Gutierrez RN Monitor 09:42 AM Radha Cardenas RT (R) Monitor 09:42 AM Raghu Chávez RN Software Development Analyst 10:09 AM Indications Indication Unstable Angina Procedures Performed Procedure CORONARY ARTERY ANGIO S&I IV Doppler BLD Flow 1st Vessel Pre-Procedure Checklist Informed consent is complete signed and on chart. H&P is on chart. ID band is on and ID verified with patient. Patient NPO for procedure The procedure was described for the patient and questions were answered. Blood Pressure: 138/83 ECG is on chart. Rhythm: NSR Plan of Care Patient will tolerate the procedure without complications. Adequate level of comfort will be maintained. Hemodynamics will remain stable Patient will recover from procedure without complications. Respiratory function will be maintained. Cardiac rhythm will remain stable. Patient temperature will be maintained. Patient and/or family have verbalized understanding of the procedure. Patient Education Intravenous Access Time IV Size Location DC'd Fluid/Drip Rate Units RN 09:40 AM 20g 1 1/4" Patent On Arrival Rt Arm 0.9NaCl 25 ml/hr Thomas Washington RN Allergies Contrast Media, Iodine Related Iodinated Contrast- Oral and IV Dye ketorolac vancomycin promethazine acetaminophen Vital Signs Time BP (mmHg) HR (bpm) O2 Sat. RR (bpm) LOC 09:41 AM 138 / 83 60 98 % 20 5 = Fully awake and oriented or at pre-proc level 09:43 AM / % 5 = Fully awake and oriented or at pre-proc level 09:43 AM / % 4 = Oriented but drowsy 09:58 AM / % 4 = Oriented but drowsy 10:47 AM 103 / 59 53 94 % 16 5 = Fully awake and oriented or at pre-proc level 09:40 AM 141 / 90 64 99 % 13 09:45 AM 149 / 97 64 98 % 17 09:50 AM 138 / 80 62 99 % 16 09:55 AM 131 / 83 60 97 % 14 10:00 AM 131 / 75 60 97 % 15 10:05 AM 113 / 68 65 99 % 14 10:11 AM 125 / 74 61 96 % 17 10:15 AM 121 / 71 61 95 % 22 10:20 AM 117 / 70 62 97 % 11 10:25 AM 116 / 58 58 95 % 10 10:30 AM 111 / 80 59 95 % 15 11:04 AM 100 / 68 54 94 % 16 11:15 AM 97 / 69 52 92 % 12 4 = Oriented but drowsy 11:30 AM 101 / 67 53 93 % 16 4 = Oriented but drowsy 11:45 AM 112 / 69 53 94 % 18 5 = Fully awake and oriented or at pre-proc level 12:00 PM 105 / 64 53 94 % 16 4 = Oriented but drowsy 12:15 PM 102 / 67 54 94 % 16 5 = Fully awake and oriented or at pre-proc level 12:30 PM 117 / 72 54 94 % 16 4 = Oriented but drowsy 12:45 PM 106 / 76 52 95 % 16 5 = Fully awake and oriented or at pre-proc level 01:00 PM 119 / 73 54 95 % 16 5 = Fully awake and oriented or at pre-proc level 01:15 PM 126 / 78 51 95 % 16 5 = Fully awake and oriented or at pre-proc level Procedural Medications Time Medication Dose Units Method Given By 09:43 AM Oxygen 2 L/min nasal cannula Raghu Chávez RN 09:50 AM Versed 1 mg Intravenous Thomas Washington RN 09:53 AM Versed 1 mg Intravenous Thomas Washington RN 09:55 AM Lidocaine 2% 10 ml Subcutaneous Dhaval Pink DO 10:08 AM Lidocaine 2% 7 ml Subcutaneous Dhaval Pink DO 10:09 AM Angiomax 0.75mg/kg bolus: 14 ml Intravenous Raghu Chávez RN 10:10 AM Angiomax 1.75mg/kg/hr: 33 ml/hr Intravenous Raghu Chávez RN 10:19 AM Adenosine 800 ml/hr Intracoronary Dhaval Pink DO 10:22 AM Adenosine d/c'd Intracoronary Dhaval Pink DO 10:25 AM Angiomax 1.75mg/kg/hr: ml Dc'd Thomas Washington RN 09:40 AM Versed 2 mg Intravenous [place], Thomas RN ASA Classification: CLASS III- Severe systemic disease (i.e. prior AMI, diabetes with vascular complications, morbid obesity) Obi Score Preprocedure Postprocedure Activity 2- Moves 4 extremities sustained head lift Activity 2- Moves 4 extremities sustained head lift Circulation 2- SBP +/= 20 points of pre-anesthetic level Circulation 2- SBP +/= 20 points of pre-anesthetic level Consciousness 2- Awake and alert oriented x 3 Consciousness 2- Awake and alert oriented x 3 O2 Saturation 2- Able to maintain O2 satruation of 92% on room air O2 Saturation 2- Able to maintain O2 satruation of 92% on room air Respiratory 2- Able to deep breathe and cough well Respiratory 2- Able to deep breathe and cough well Total Score 10 Total Score 10 Contrast Agent: Isovue Diagnostic Contrast: 120 ml Total Contrast: 120 ml Fluoro Dose: 952 mGy Procedure Log Time Note Enter By 09:27 AM CathStat 09:40 AM Vitals capture started with the following parameters, Patient=Adult, Interval=5 min, Initial Cjbufhuf=271 mmHg, Deflation Rate=5 mmHg, Cuff placed on Right Arm 09:40 AM Recorded ECG: HR=65 Condition=Condition 1 09:40 AM HR=64 bpm, WJFI=963/90 mmhg, SpO2=99.0 %, Resp=13 B/min 09:41 AM Pt arrived to laboratory apparatus glass grinder 2 at 09:[facility] 09[facility] AM Thomas Washington RN Position: Software Development Analyst Time in: 09:41 [email or web address] 09:42 AM Raghu Chávez RN Position: Software Development Analyst Time in: :41 [email or web address] 09:42 AM Brooklynn Gutierrez RN Position: Monitor Time in: :42 [email or web address] 09:42 AM Radha Cardenas RT (R) Position: Monitor Time in: 09:42 [email or web address] 09:42 AM Patient charges- Angio tray pack, Navilyst 3mm J, Pulse Oximetry and ACIST tubing and [facility] 09:43 AM Case Delayed [facility] 09:43 AM Hair removed from procedure site in procedure lab using clippers. Bilateral groin prepped with Chloraprep by Raghu Chávez RN, then patient was draped. Skin intact. [facility] 09:43 AM [facility] 09:[facility] AM Ariel completed [facility] : AM Sign in performed according to hospital policy. [facility] :43 Procedure start : [facility] AM Time: Oxygen on at 2 L/min per nasal cannula by Raghu Chávez RN [facility] : AM Time: : Patient comfortable and pain free: Yes [facility] AM Time: LOC: 5 = Fully awake and oriented or at pre-proc level [facility] :43 AM Clinical Presentation: Unstable angina [facility] 09:45 AM HR=64 bpm, CNEJ=327/97 mmhg, SpO2=98.0 %, Resp=17 B/min, Comment=NSR 09:48 AM ASA Class CLASS III- Severe systemic disease (i.e. prior AMI, diabetes with vascular complications, morbid obesity) [facility] 09:50 AM Time: 09:50 Versed 1 mg Intravenous Given by Thomas Washington RN scoates 09:50 AM HR=62 bpm, IZYT=565/80 mmhg, SpO2=99.0 %, Resp=16 B/min, Comment=NSR 09:52 AM Time out performed according to hospital policy scoates 09:53 AM Pressure channel 2 zeroed. 09:53 AM Time: 09:53 Versed 1 mg Intravenous Given by Thomas Washington RN scoates 09:55 AM Time: 09:55 10 ml Lidocaine 2% to right groin Subcutaneous Given by Dhaval Pink DO scoates 09:55 AM Micro-Introducer Kit utilized for sheath placement scoates 09:55 AM HR=60 bpm, ZQGD=269/83 mmhg, SpO2=97.0 %, Resp=14 B/min, Comment=NSR 09:56 AM Access obtained by percutaneous puncture. 6Fr 11cm Terumo [place] sheath placed in right Femoral artery. [id number] scoates 09:56 AM 4mls of contrast hand injected into the right femoral scoates 09:57 AM 6Fr FR 4 catheter inserted over the wire [facility] scoates 09:58 AM Recorded Pressure: Ao, HR=61, Condition=Condition 1 (Aorta) Ao 112/70/90 09:58 AM Time: 43LOC: 4 = Oriented but drowsy scoates 09:58 AM Time: 09:43 Patient comfortable and pain free: Yes scoates 09:59 AM RCA angiography performed in multiple views. scoates 09:59 AM Catheter removed scoates 09:59 AM 6Fr FL 4 catheter inserted over the wire DNC scoates 10:00 AM LCA angiography performed in multiple views. scoates 10:00 AM Recorded Pressure: Ao, HR=61, Condition=Condition 1 (Aorta) Ao 121/76/96 10:00 AM HR=60 bpm, AYFP=118/75 mmhg, SpO2=97.0 %, Resp=15 B/min, Comment=NSR 10:02 AM Recorded Pressure: Ao, HR=62, Condition=Condition 1 (Aorta) Ao 114/70/89 10:04 AM Catheter removed scoates 10:05 AM 6Fr JL4 Bolt Bright-Tip guide catheter was used to cannulate the PCI vessel successfully. reused? No scoates 10:05 AM physician reviewing films scoates 10:05 AM HR=65 bpm, JQDW=383/68 mmhg, SpO2=99.0 %, Resp=14 B/min, Comment=NSR 10:08 AM Time: 10:08 7 ml Lidocaine 2% to right groin Subcutaneous Given by Dhaval Pink, DO scoates 10:09 AM .014 Choice Extra Support 300cm guide wire across target lesion- successful. reused? No scoates 10:09 AM Time: 10:09 Angiomax 0.75mg/kg bolus: 14 ml Intravenous Given by Raghu Chávez RN Quiroga pump scoates 10:09 AM Raghu Chávez RN Position: Software Development Analyst Time in: 10:09 scoates 10:10 AM Pressure channel 2 zeroed. 10:11 AM Time: 10:10 Angiomax 1.75mg/kg/hr: 33 ml/hr Intravenous Given by Raghu Chávez RN Quiroga pump scoates 10:11 AM HR=61 bpm, DAZY=311/74 mmhg, SpO2=96.0 %, Resp=17 B/min, Comment=NSR 10:11 AM Lesion found in Ramus. Pre Stenosis: 70 Pre BALJINDER Flow: 3: Complete and Brisk Flow/Perfusion scoates 10:12 AM Asist FFR Catheter advanced to target lesion. scoates 10:13 AM Recorded Pressure: Ao, HR=62, Condition=Condition 1 (Aorta) Ao 101/64/81 10:14 AM Time: 09:58 Patient comfortable and pain free: Yes scoates 10:14 AM Time: 09:58LOC: 4 = Oriented but drowsy scoates 10:15 AM HR=61 bpm, GDQS=429/71 mmhg, SpO2=95.0 %, Resp=22 B/min, Comment=NSR 10:17 AM Recorded Pressure: Ao, HR=59, Condition=Condition 1 (Aorta) Ao 111/68/86 10:19 AM Time: 10:19 Adenosine 800 ml/hr administered Intracoronary by Dhaval Pink DO scoates 10:19 AM FFR measurement before starting is 0.96 scoates 10:20 AM Recorded Pressure: Ao, HR=62, Condition=Condition 1 (Aorta) Ao 98/64/79 10:20 AM HR=62 bpm, RPFU=263/70 mmhg, SpO2=97.0 %, Resp=11 B/min, Comment=NSR 10:22 AM Time: 10:22 Adenosine d/c'd administered Intracoronary by Dhaval Pink DO scoates 10:22 AM FFR Measurement: 0.88 scoates 10:23 AM Flow Wire/Catheter removed intact scoates 10:24 AM Guide wire removed intact. scoates 10:25 AM Guide catheter removed intact. scoates 10:25 AM HR=58 bpm, APZH=986/58 mmhg, SpO2=95.0 %, Resp=10 B/min, Comment=NSR 10:26 AM Time: 10:25 Angiomax 1.75mg/kg/hr: ml Dc'd Given by Thomas Washington RN Quiroga pump scoates 10:30 AM HR=59 bpm, DOPE=158/80 mmhg, SpO2=95.0 %, Resp=15 B/min 10:33 AM Bolus angiogram of right Femoral complete: hand injected for a total of 5 mls scoates 10:33 AM Sign out completed: Radiation Dose 952 mGy Fluoro Time: 6.0 Isovue 370 - 200ml contrast 120 ml given by Dhaval Pink DO. Complications: NoneCardiac Rehab Consult needed: NoConfirmed administered medications: Yes scoates 10:35 AM Procedure completed at 10:35 scoates 10:35 AM Did you address BALJINDER flow and Dominance? Yes scoates 10:36 AM Coronary Dominance: Left scoates 10:41 AM Lesion found in Proximal RCA. Pre Stenosis: 100 Pre BALJINDER Flow: scoates 10:41 AM Lesion found in 1st Diagonal. Pre Stenosis: 100 Pre BALJINDER Flow: scoates 10:43 AM Isovue 370 - 200ml,1 Bottle(s) used. scoates 10:44 AM Sheath left in place to be pulled on floor/holding areaV+Pad scoates 10:45 AM Estimated Blood Loss: less than 20cc scoates 10:45 AM Post ECG NSR scoates 10:45 AM Post Blood Pressure 111/80 scoates 10:45 AM 10:45 Post Pulses Bilateral DP & PT 2+ scoates 10:45 AM Information taught Cardiac Cath scoates 10:45 AM Education needs Plan of Care, Procedure, and Responsibilities of Patient in Care scoates 10:45 AM Learning barriers :None scoates 10:45 AM Education Methods Verbal scoates 10:46 AM Education evaluation Able to repeat information scoates 10:46 AM Site status No bleeding/hematoma - Rt Groin as reported by Rahda Cardenas RT (R) at 10:46 scoates 10:46 AM Opsite applied scoates 10:46 AM Report given to Dayanna HOLLIS Pt taken to Holding room Room #4. 10:46 scoates 10:47 AM patient return to HR 4 mprater 10:47 AM Plavix, Effient or Brilinta given Yes scoates 10:47 AM Delay to floor No scoates 10:47 AM Patient out of room: 10:47 scoates 10:47 AM Family placed in no family here at this time. scoates 10:47 AM Complications: None scoates 10:52 AM Time: 09:40 Versed 2 mg Intravenous Given by Thomas Washington RN scoates 01:08 PM Arterial sheath pulled using manual compression and V+ Pad for 15 minutes by Thomas Washington RN mprater 01:09 PM report called to [place] on mprater 01:24 PM Arterial sheath pulled, closure device used and was Successful S/N. mprater 01:25 PM patient transferred to per Rob Washington mprater Complications Complication None None Hemodynamics Pressures Site Systolic/A Wave Diastolic/V Wave Mean AO 112 70 90 AO 121 76 96 AO 114 70 89 AO 101 64 81 AO 111 68 86 AO 98 64 79 Post Procedure Information Blood Pressure: 111/80 mmHg Rhythm: NSR Post procedural instructions were given Closure Device Time Device Success/Fail Manual Compression Site Checks Time Location Status Staff Sheath In? Note 10:46 AM Rt Groin No bleeding/hematoma Radha Cardenas RT (R) Yes 11:03 AM Rt Groin No bleeding/ No Hematoma Thomas Washington RN Yes 11:15 AM Rt Groin No bleeding/ No Hematoma Von Farris RN Yes 11:30 AM Rt Groin No bleeding/ No Hematoma Von Farris RN Yes 11:45 AM Rt Groin No bleeding/ No Hematoma Von Farris RN Yes 12:00 PM Rt Groin No bleeding/ No Hematoma Von Farris RN Yes 12:15 PM Rt Groin No bleeding/ No Hematoma Von Farris RN Yes 12:30 PM Rt Groin No bleeding/ No Hematoma Dayanna Ramirez RN Yes 12:45 PM Rt Groin No bleeding/ No Hematoma Dayanna Ramirez RN Yes 01:00 PM Rt Groin No bleeding/ No Hematoma Dayanna Ramirez RN Yes 01:15 PM Rt Groin No bleeding/ No Hematoma Thomas Washington RN No 01:20 PM Rt Groin No bleeding/ No Hematoma Thomas Washington RN No Pulses Time Site Pre-Procedure Post-Procedure Note 05/06/2017 9:41:00 AM Bilateral DP & PT 2+ 05/06/2017 9:41:00 AM Bilateral radial 2+ 10:45:00 AM Bilateral DP & PT 2+ 05/06/2017 11:04:00 AM Bilateral DP & PT 2+ 05/06/2017 11:15:00 AM Bilateral DP & PT 2+ 05/06/2017 12:30:00 PM Bilateral DP & PT 2+ 05/06/2017 1:00:00 PM Bilateral DP & PT 2+ 05/06/2017 1:15:00 PM Bilateral DP & PT 2+ Updated by Dayanna Ramirez, BNUNY on 05/06/2017 1:47:41 PM Dayanna Ramirez RN electronically signed on 05/06/2017 1:50:03 PM with status of Final
--- NOTE | 2017-05-06 13:59 | Event Note ---
Date of Encounter: 05/06/17 Time of Encounter: 13:57 - Cardiology Event Note [facility] today--coronary disease noted, but no intervention. Continued medical management recommended. Final cath report pending. Continue ASA, Plavix, Statin , BB, CCB, nitrates. Cardiology signing off. Reconsult PRN. Will coordinate outpt follow-up in 3-4 weeks.
--- NOTE | 2017-05-06 14:40 | Discharge Summary ---
Orders not resulted at time of discharge: Pending orders 05/06/17 05:57 HBSAG Confirmation Routine 05/06/17 08:40 CL Cardiac Catheterization [CL] Routine Date of Encounter: 05/06/17 Time of Encounter: 14:38 - Discharge Diagnosis (1) Chest pain Priority: Primary Status: Acute Comments: unstable angina Qualifiers: Chest pain type: unspecified Qualified Code(s): R07.9 - Chest pain, unspecified (2) Tobacco abuse Priority: Secondary Status: Acute (3) COPD (chronic obstructive pulmonary disease) Priority: Secondary Status: Acute Qualifiers: COPD type: emphysema Emphysema type: unspecified Qualified Code(s): J43.9 - Emphysema, unspecified (4) History of CVA (cerebrovascular accident) Priority: Secondary Status: Acute (5) Status post carotid surgery Priority: Secondary Status: Acute Comments: left carotid surgery (6) CAD (coronary artery disease) Priority: Secondary Status: Chronic Comments: Hx of stents in the past [place] [facility] and [place] Qualifiers: Coronary Disease-Associated Artery/Lesion type: bypass graft [place] vs. transplanted heart: citizen [place] heart Associated angina: angina presence unspecified Qualified Code(s): I25.810 - Atherosclerosis of coronary artery bypass graft(s) without angina pectoris (7) Drug-seeking behavior Priority: Secondary Status: Acute Comments: apparently the patient was found getting needles out of the sharp container. (8) Transaminitis Priority: Secondary Status: Acute Hospital course: Mr. Pink is a 47 year old male with a past medical history of tobacco abuse, COPD not oxygen dependent, CVA, left carotid endarterectomy, CAD with history of stents, multiple [facility] and [place], drug-seeking behavior, transaminitis due to history of hepatitis B and C, alcohol abuse, presented to ER from [facility] for chest pain. Patient said the chest pain started about 3 PM on the day prior to admission at rest. Chest pain had a sudden onset, located on left chest, radiated to left the neck and back into left shoulder. Described as heavy and sharp. Pain was intermittent, no alleviating or exacerbating factors. Patient had shortness of breath, nausea, and diaphoresis. Reported significant fatigue over the past year. Reports symptoms similar to prior anginal equivalent. Reported his most recent C was at [place] ~1 year ago with PCI at that time. Reports having a negative stress test at [facility] ~6 months ago. TTE pending. Troponins negative. Cardiology was consulted. The patient received a prednisone due to history of contrast allergy. Underwent a cardiac catheterization, the final reports are pending, no stents were placed. Cardiology recommended outpatient follow-up, to continue aspirin and Plavix. Time spent discussing smoking cessation with patient: 3 to 10 minutes - Time Spent with Patient Total time spent providing and/or coordinating discharge services: Greater than 30 minutes (40 min) - Discharge Medications Home Medications: Albuterol Neb [Proventil Neb] 2.5 mg IH Q4HR PRN #15 [email or web address] 06/07/16 [Rx] Albuterol Sulfate [Ventolin Hfa] 2 puff IH Q4H PRN #2 [email or web address] 06/07/16 [Rx] Alprazolam [Xanax] 2 mg PO TID 06/07/16 [History] Aspirin Enteric Coated [Aspirin EC] 325 mg PO DAILY 06/07/16 [History] Atorvastatin Calcium [Lipitor] 80 mg PO HS 06/07/16 [History] Clopidogrel [Plavix] 75 mg PO DAILY 06/07/16 [History] Ergocalciferol (VITAMIN D2) [Vitamin D] 400 unit PO DAILY 06/07/16 [History] Escitalopram [Lexapro] 10 mg PO DAILY 06/07/16 [History] Furosemide [Lasix] 20 mg PO DAILY 06/07/16 [History] Isosorbide MONOnitrate (24 HR) [Imdur] 60 mg PO DAILY 06/07/16 [History] Lisinopril [Zestril] 40 mg PO DAILY 06/07/16 [History] Metoprolol [Lopressor] 50 mg PO BID 06/07/16 [History] Nitroglycerin [Nitrostat] 0.4 mg SL AD PRN 06/07/16 [History] Oxycodone HCl 15 mg PO TID 06/07/16 [History] Ranolazine [Ranexa] 1,000 mg PO BID 06/07/16 [History] Sucralfate [Carafate] 1 gm PO QIDAC 06/07/16 [History] Mirtazapine [Remeron] 45 mg PO HS 05/05/17 [History] Omeprazole [PriLOSEC] 40 mg PO DAILY 05/05/17 [History] Quetiapine Fumarate [Seroquel] 200 mg PO DAILY 05/05/17 [History] Venlafaxine XR (24 HR) [Effexor XR] 150 mg PO QPM 05/05/17 [History] amLODIPine [Norvasc] 5 mg PO DAILY 05/05/17 [History] Allergies/Adverse Reactions: 3 Allergy/AdvReac Type Severity Reaction Status Date / Time acetaminophen [From Tylenol] Allergy Hives Verified 06/06/16 17:13 ketorolac [From Toradol] Allergy Hives Verified 05/05/17 13:50 promethazine [From Phenergan] Allergy Hives Verified 05/05/17 13:50 vancomycin Allergy Hives Verified 05/05/17 13:50 Iodinated Contrast- Oral and AdvReac Unresponsiv Verified 05/05/17 13:49 IV Dye e Date of admission: 05/05/17 02:24 Primary care physician: Too Us Consults: 05/05/17 03:12 Consult to Cardiology [CONS] Routine Comment: Consulting Provider: Cardiology Latha Reason for Consult: chest pain, Hx of CAD s/p stent Call Completed: No - Constitutional Vitals: Temp Pulse Resp BP Pulse Ox 98.2 F 60 16 123/66 95 05/06/17 12:20 05/06/17 12:35 05/06/17 12:35 05/06/17 12:35 05/06/17 12:35 General appearance: Present: mild distress, A&O X 3, answers questions appropriately - Head Head exam: Present: atraumatic, normocephalic - Eye Eye exam: Present: PERRL, conjuntiva pink, sclera anicteric Pupils: Present: PERRL - Neck Neck exam general surgery: Present: supple, trachea midline. Absent: lymphadenopathy - Respiratory Respiratory exam: Present: CTAB. Absent: accessory muscle use, rales, rhonchi, wheezes - Cardiovascular Cardiovascular exam: Present: RRR, +S1, +S2. Absent: diastolic murmur, gallop, rubs, systolic murmur - GI/Abdominal GI/Abdominal exam: Present: normal bowel sounds, soft, no peritoneal signs. Absent: distended, tenderness - Extremities Exam Extremities exam: Present: warm, radial pulses palpable and symmetrical. Absent : calf tenderness, cyanotic, pedal edema Additional comments: Right groin wound, no hematoma or evidence of infection - Neurological Exam Neurological exam: Present: CN II-XII intact, oriented X3, no focal deficits. Absent: pronater drift, facial droop, speech deficit - Skin Skin exam: Present: dry, intact - Patient Status Disposition: Home, Self-Care Condition: Good Overall status at discharge: patient is back to baseline - Discharge Instructions Follow Up With: Too Us DO [Primary Care Provider] - Additional Instructions: Follow-up with primary care physician, continue aspirin, Plavix, Lipitor, metoprolol, Ranexa. Quit smoking Can follow-up with cardiology within the next 3-4 weeks. - Diet and Activity Activity: increase activity as tolerated
--- NOTE | 2017-05-06 14:48 | Electrocardiograph Report ---
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
[2017-05-06 16:47] VITALS: BP 114/63
[2017-05-06] MEDS: Venlafaxine XR (24 HR) 75 MG CAP.ER.24H PO SCH (17:43)
--- NOTE | 2017-05-08 20:14 | Event Note ---
Date of Encounter: 05/08/17 Time of Encounter: 20:13 Multiple tendons of the need to call the patient to inform him of positive results of both hepatitis B and hepatitis C. However, the patient's mailboxes currently full and I am unable to leave a message at this time.
== END 2017-05-06 18:01 | disposition home or self-care (01) ==
LOC: 3BNU
PROVIDERS: ADMIT Internal Medicine; ATTEND Registered Nurse

== ENCOUNTER 2020-11-17 21:01 | Observation (INO) ==
[2020-11-17] MEDS ORDERED: Melatonin 3 MG TABLET PO PRN (23:41)
[2020-11-17] MEDS ORDERED: Naloxone 0.4 MG/ML INJ IVP PRN (23:41)
[2020-11-18] MEDS ORDERED: Naloxone 0.4 MG/ML INJ IVP PRN (02:28)
[2020-11-18] MEDS ORDERED: MethylPREDNISolone 40 MG/ML VIAL IVP ONE ×3 (03:08→18:30)
[2020-11-18] MEDS ORDERED: Isovue-370 500 ML BOTTLE IVP ONE ×2 (03:09→19:30)
[2020-11-18] MEDS ORDERED: Ibuprofen 400 MG TABLET PO PRN (04:55)
[2020-11-18] MEDS ORDERED: *HR* Heparin 5,000 UNIT/ML VIAL SQ SCH (06:00)
[2020-11-18] MEDS ORDERED: Regadenoson 0.4 MG/5 ML SYRINGE IVP ONE (06:06)
[2020-11-18 07:52] LABS: Basophils % 0.3 %; Eosinophils # 0.1 K/mcL (0.0-0.6); Eosinophils % 1.3 %; Hematocrit 45.1 % (37.5-50.1); Hemoglobin 14.9 g/dL (12.9-16.9); Immature Granulocytes % 0.5 % (0-4); Lymphocytes # 1.2 K/mcL (0.6-4.6); Lymphocytes % 12.1 %; Mean Corpuscular Hemoglobin 31.4 pg (28.0-33.3); Mean Corpuscular Volume 95.1 fL (83.0-100.0); Mean Platelet Volume 10.4 fL (9.4-12.4); Monocytes # 0.2 K/mcL (0.0-1.3); Monocytes % 2.5 %; Platelet Count 187 K/mcL (140-400); Red Blood Count 4.74 M/mcL (4.19-5.50); Red Cell Distribution Width 14.2 % (11.5-14.5); Segmented Neutrophils % 83.3 %; White Blood Count 9.6 K/mcL (4.3-11.1)
[2020-11-18 08:17] LABS: BUN/Creatinine Ratio 22 (6-26); Blood Urea Nitrogen 23 mg/dL (6-20); Calcium 9.1 mg/dL (8.6-10.3); Carbon Dioxide 19 mEq/L (23-29); Chloride 109 mEq/L (98-107); Glucose 93 mg/dL (70-105); Magnesium 1.8 mg/dL (1.6-2.6); Osmolality,Calculated 281 (280-300); Potassium 5.8 mEq/L (3.5-5.1); Sodium 134 mEq/L (136-145); Troponin I 0.03 ng/mL (< 0.04); eGFR For African Americans > 60 (> 60); eGFR For Non-African Americans > 60 (> 60)
[2020-11-18] MEDS: Morphine Sulfate 2 MG/ML SYRINGE IVP PRN ×4 (08:51→22:43)
[2020-11-18] MEDS ORDERED: Aspirin 81 MG TAB.CHEW PO SCH (09:00)
[2020-11-18] MEDS ORDERED: Calcium Gluconate 1gm/50mL 1 GM/50 ML BAG IVPB ONE (10:09)
[2020-11-18] MEDS ORDERED: Albuterol 2.5 MG/3 ML NEBULIZER IH ONE (10:09)
[2020-11-18] MEDS ORDERED: Perflutren Lipid Microsphere 1.3 ML in 0.9 % Sodium Chloride 8.7 ML IVP PRN (10:29)
[2020-11-18] MEDS: Isosorbide MONOnitrate (24 HR) 30 MG TAB.ER.24H PO SCH (11:47)
[2020-11-18] MEDS: Nitroglycerin 0.4 MG TAB.SUBL SL PRN ×2 (13:49→16:52)
[2020-11-18 15:31] LABS: Amphetamine Screen,Urine Negative ng/mL (Cutoff=1000); Barbiturate Screen,Urine Negative ng/mL (Cutoff=200); Benzodiazepines Screen,Urine Negative ng/mL (Cutoff=200); Cannabinoid Screen,Urine Negative ng/mL (Cutoff = 50); Cocaine Screen,Urine Negative ng/mL (Cutoff= 300); Opiate Screen,Urine Negative ng/mL (Cutoff=300); Phencyclidine Screen,Urine Negative ng/mL (Cutoff=25)
[2020-11-18 15:55] LABS: BUN/Creatinine Ratio 21 (6-26); Blood Urea Nitrogen 24 mg/dL (6-20); Calcium 9.4 mg/dL (8.6-10.3); Carbon Dioxide 18 mEq/L (23-29); Chloride 106 mEq/L (98-107); Glucose 221 mg/dL (70-105); Osmolality,Calculated 293 (280-300); Potassium 4.3 mEq/L (3.5-5.1); Sodium 136 mEq/L (136-145); eGFR For African Americans > 60 (> 60); eGFR For Non-African Americans > 60 (> 60)
[2020-11-18 16:25] LABS: C-Reactive Protein < 5 mg/L (Less than 10)
[2020-11-18] MEDS: Ranolazine 500 MG TAB.ER.12H PO SCH (20:33)
[2020-11-18] MEDS: Mirtazapine 15 MG TABLET PO SCH (20:33)
[2020-11-18] MEDS ORDERED: *HR* LORazepam 2 MG/ML VIAL IVP ONE (21:40)
[2020-11-18] MEDS: Apixaban 5 MG TABLET PO SCH (22:42)
[2020-11-19] MEDS: Morphine Sulfate 2 MG/ML SYRINGE IVP PRN ×2 (02:58→10:04)
[2020-11-19] MEDS: Mirtazapine 15 MG TABLET PO SCH ×2 (07:22→21:26)
[2020-11-19] MEDS: Isosorbide MONOnitrate (24 HR) 30 MG TAB.ER.24H PO SCH (07:22)
[2020-11-19] MEDS: Ranolazine 500 MG TAB.ER.12H PO SCH ×2 (07:22→21:27)
[2020-11-19] MEDS: Furosemide 20 MG TABLET PO SCH (07:22)
[2020-11-19] MEDS: Apixaban 5 MG TABLET PO SCH ×2 (07:22→21:26)
[2020-11-19] MEDS: lisinopriL 20 MG TABLET PO SCH (07:23)
[2020-11-19 07:51] LABS: Hematocrit 41.5 % (37.5-50.1); Hemoglobin 13.6 g/dL (12.9-16.9); Mean Corpuscular HGB Conc 32.8 g/dL (31.6-35.5); Mean Corpuscular Hemoglobin 31.4 pg (28.0-33.3); Mean Corpuscular Volume 95.8 fL (83.0-100.0); Mean Platelet Volume 10.2 fL (9.4-12.4); Platelet Count 202 K/mcL (140-400); Red Blood Count 4.33 M/mcL (4.19-5.50); Red Cell Distribution Width 14.5 % (11.5-14.5)
[2020-11-19 07:52] LABS: White Blood Count 25.2 K/mcL (4.3-11.1)
[2020-11-19 08:11] LABS: BUN/Creatinine Ratio 25 (6-26); Blood Urea Nitrogen 26 mg/dL (6-20); Calcium 9.1 mg/dL (8.6-10.3); Carbon Dioxide 19 mEq/L (23-29); Chloride 109 mEq/L (98-107); Glucose 145 mg/dL (70-105); Osmolality,Calculated 291 (280-300); Potassium 5.5 mEq/L (3.5-5.1); Sodium 137 mEq/L (136-145); eGFR For African Americans > 60 (> 60); eGFR For Non-African Americans > 60 (> 60)
[2020-11-19] MEDS ORDERED: Isosorbide MONOnitrate (24 HR) 30 MG TAB.ER.24H PO ONE (08:15)
[2020-11-19 08:58] LABS: Magnesium 1.7 mg/dL (1.6-2.6)
[2020-11-19] MEDS ORDERED: amLODIPine 5 MG TABLET PO SCH (09:00)
[2020-11-19 09:03] LABS: Lymphocytes # 0.5 K/mcL (0.6-4.6); Monocytes # 0.5 K/mcL (0.0-1.3); Neutrophils # 24.2 K/mcL (1.6-8.9)
[2020-11-19 09:05] LABS: Platelet Estimate Normal (Normal)
[2020-11-19 13:58] LABS: Basophils # 0.1 K/mcL (0.0-0.2); Basophils % 0.2 %; Eosinophils % 0.1 %; Hematocrit 43.3 % (37.5-50.1); Hemoglobin 13.9 g/dL (12.9-16.9); Immature Granulocytes % 0.8 % (0-4); Lymphocytes # 2.2 K/mcL (0.6-4.6); Lymphocytes % 8.9 %; Mean Corpuscular HGB Conc 32.1 g/dL (31.6-35.5); Mean Corpuscular Hemoglobin 31.2 pg (28.0-33.3); Mean Corpuscular Volume 97.3 fL (83.0-100.0); Monocytes # 1.7 K/mcL (0.0-1.3); Monocytes % 6.6 %; Neutrophils # 20.8 K/mcL (1.6-8.9); Platelet Count 199 K/mcL (140-400); Red Blood Count 4.45 M/mcL (4.19-5.50); Red Cell Distribution Width 14.6 % (11.5-14.5); Segmented Neutrophils % 83.4 %
[2020-11-19 17:49] LABS: BUN/Creatinine Ratio 26 (6-26); Blood Urea Nitrogen 26 mg/dL (6-20); Calcium 8.7 mg/dL (8.6-10.3); Carbon Dioxide 19 mEq/L (23-29); Chloride 111 mEq/L (98-107); Glucose 155 mg/dL (70-105); Osmolality,Calculated 290 (280-300); Sodium 136 mEq/L (136-145); eGFR For African Americans > 60 (> 60); eGFR For Non-African Americans > 60 (> 60)
[2020-11-20 07:56] LABS: Basophils # 0.1 K/mcL (0.0-0.2); Basophils % 0.6 %; Eosinophils # 0.2 K/mcL (0.0-0.6); Eosinophils % 1.4 %; Hematocrit 44.6 % (37.5-50.1); Hemoglobin 14.3 g/dL (12.9-16.9); Immature Granulocytes % 1.4 % (0-4); Lymphocytes # 3.6 K/mcL (0.6-4.6); Lymphocytes % 23.4 %; Mean Corpuscular HGB Conc 32.1 g/dL (31.6-35.5); Mean Corpuscular Hemoglobin 31.4 pg (28.0-33.3); Mean Corpuscular Volume 97.8 fL (83.0-100.0); Mean Platelet Volume 10.4 fL (9.4-12.4); Monocytes # 0.9 K/mcL (0.0-1.3); Monocytes % 5.8 %; Neutrophils # 10.4 K/mcL (1.6-8.9); Platelet Count 202 K/mcL (140-400); Red Blood Count 4.56 M/mcL (4.19-5.50); Red Cell Distribution Width 14.7 % (11.5-14.5); Segmented Neutrophils % 67.4 %; White Blood Count 15.4 K/mcL (4.3-11.1)
[2020-11-20 08:24] LABS: BUN/Creatinine Ratio 25 (6-26); Blood Urea Nitrogen 31 mg/dL (6-20); Calcium 8.6 mg/dL (8.6-10.3); Carbon Dioxide 20 mEq/L (23-29); Chloride 113 mEq/L (98-107); Glucose 114 mg/dL (70-105); Osmolality,Calculated 295 (280-300); Potassium 5.2 mEq/L (3.5-5.1); Sodium 139 mEq/L (136-145); eGFR For African Americans > 60 (> 60); eGFR For Non-African Americans > 60 (> 60)
[2020-11-20] MEDS ORDERED: Isosorbide MONOnitrate (24 HR) 30 MG TAB.ER.24H PO SCH (09:00)
[2020-11-20] MEDS: Ranolazine 500 MG TAB.ER.12H PO SCH ×2 (09:30→21:05)
[2020-11-20] MEDS: lisinopriL 20 MG TABLET PO SCH (09:31)
[2020-11-20] MEDS: Furosemide 20 MG TABLET PO SCH (09:31)
[2020-11-20] MEDS: Apixaban 5 MG TABLET PO SCH ×2 (09:31→21:05)
[2020-11-20] MEDS: amLODIPine 5 MG TABLET PO SCH (09:31)
[2020-11-20] MEDS: Mirtazapine 15 MG TABLET PO SCH ×2 (09:40→21:05)
[2020-11-20 22:05] VITALS: O2SAT 98
[2020-11-21 03:05] VITALS: PULSE 52; TEMP 97.8
[2020-11-21 04:52] LABS: Blood Urea Nitrogen 37 mg/dL (6-20); Calcium 8.5 mg/dL (8.6-10.3); Carbon Dioxide 21 mEq/L (23-29); Chloride 113 mEq/L (98-107); Glucose 85 mg/dL (70-105); Osmolality,Calculated 294 (280-300); Potassium 5.8 mEq/L (3.5-5.1); Sodium 138 mEq/L (136-145)
[2020-11-21 05:50] LABS: BUN/Creatinine Ratio 32 (6-26); eGFR For African Americans > 60 (> 60); eGFR For Non-African Americans > 60 (> 60)
[2020-11-21 06:21] LABS: Basophils # 0.1 K/mcL (0.0-0.2); Basophils % 0.8 %; Eosinophils # 0.3 K/mcL (0.0-0.6); Eosinophils % 2.7 %; Hematocrit 45.5 % (37.5-50.1); Hemoglobin 14.4 g/dL (12.9-16.9); Immature Granulocytes % 1.9 % (0-4); Lymphocytes # 3.2 K/mcL (0.6-4.6); Lymphocytes % 30.8 %; Mean Corpuscular HGB Conc 31.6 g/dL (31.6-35.5); Mean Corpuscular Volume 98.1 fL (83.0-100.0); Mean Platelet Volume 10.2 fL (9.4-12.4); Monocytes # 0.9 K/mcL (0.0-1.3); Monocytes % 8.5 %; Neutrophils # 5.8 K/mcL (1.6-8.9); Platelet Count 213 K/mcL (140-400); Red Blood Count 4.64 M/mcL (4.19-5.50); Red Cell Distribution Width 14.7 % (11.5-14.5); Segmented Neutrophils % 55.3 %; White Blood Count 10.5 K/mcL (4.3-11.1)
[2020-11-21 07:34] VITALS: BP 136/78
[2020-11-21] MEDS: amLODIPine 5 MG TABLET PO SCH (08:49)
[2020-11-21] MEDS: Mirtazapine 15 MG TABLET PO SCH (08:49)
[2020-11-21] MEDS: Ranolazine 500 MG TAB.ER.12H PO SCH (08:49)
[2020-11-21] MEDS: Apixaban 5 MG TABLET PO SCH (08:49)
[2020-11-21] MEDS: Furosemide 20 MG TABLET PO SCH (08:49)
== END 2020-11-21 11:12 | disposition home or self-care (01) ==
LOC: 3BNU → SUATTDRO 23:11 → 4WAOSI 23:30 → 3BNU 11-19 06:30
PROVIDERS: ADMIT Internal Medicine; ATTEND Family Medicine